=== PATIENT | male | born 1950 | race Caucasian/White ===

== ENCOUNTER 2016-11-10 12:36 | Emergency (ER) | payer BC, MEDICARE ==
[2016-11-10] MEDS ORDERED: CEPHALEXIN MONOHYDRATE 250 MG CAPSULE PO ONE (13:24)
[2016-11-10] MEDS ORDERED: CEPHALEXIN MONOHYDRATE 250 MG CAPSULE ONE (13:26)
--- OUTSIDE RECORDS SUMMARY | 2016-11-10 13:29 | XMS REPORT | Continuity of Care Document ---
:1950 Author Organization [employer] [place] [address] Care Team Providers Name Role Phone Unavailable Primary Care Provider Unavailable Source Comments This disclosure is being made pursuant to the com[employer] program and maynot contain all information available regarding this patient.[facility] Active Allergies and Adverse Reactions Not on File Current Medications Be aware that medications may not be up to date as of this document. Alwaysverify current medications with the patient. Not on file Active Problems Not on file Social History Tobacco Use Types Packs/Day Years Used Date Never Assessed Plan of Care Health Maintenance Due Date Last Done Comments Retired-Pertussis Vaccine Adult 1969 Retired-Tetanus Vaccine Adult 1969 Colonoscopy 2000 Well Adult Visit 2000 Zoster Vaccine 60+ 2010 Retired-INFLUENZA VACCINE 05/09/2015 Retired-Pneumococcal 23 Vaccine-65+ yo 2015 Results from Last 3 Months Not on file
--- OUTSIDE RECORDS SUMMARY | 2016-11-10 13:30 | XMS REPORT | Continuity of Care Document ---
:1950 Author Organization [facility] ([facility]) Address [address] [place] [address] Phone [phone] Care Team Providers Name Role Phone Abhishek Arias Primary Care Provider [phone] Source Comments This disclosure is being made pursuant to the Care Everywhere program, applicable federal and state laws, and may not contain all informaitonavailable regarding this patient.[facility] ([facility]) Active Allergies and Adverse Reactions Allergen Noted Date Severity Reactions Comments Sulfa (Sulfonamide Antibiotics) 01/22/2012 NO REACTION Current Medications Prescription Sig. Disp. Refills Start Date End Date Status amLODIPine 10 mg Take 10 mg by Active tablet mouth daily. acetaminophen Take 500 mg by Active (TYLENOL EXTRA mouth every 4 STRENGTH) 500 mg hours as tablet needed. spironolactone 25 Take 25 mg by Active mg tablet mouth daily. finasteride 5 mg Take 5 mg by Active tablet mouth every evening. SUPPLY syringe Inject by 1 Syringe 0 05/01/2015 Active (disposable) 10 mL injection once glimepiride 2 mg Take 2 mg by 6 07/27/2015 Active tablet mouth daily losartan-hydrochlor Take 1 tablet 8 12/14/2015 Active othiazide 100-12.5 by mouth daily. mg per tablet CIALIS 20 mg tablet as instructed. 3 03/09/2016 Active SUPPLY ONE TOUCH 06/14/2016 Active ULTRA test strips metoPROLol Take 1 tablet 90 tablet 3 07/09/2016 Active succinate 100 mg XL (100 mg total) tablet by mouth daily. tamsulosin 0.4 mg Take 0.4 mg by 11 07/31/2016 Active capsule mouth at bedtime. HYDROcodone-acetami Take 1-2 30 tablet 0 08/19/2016 Active nophen 5-325 mg per tablets by tablet mouth every 4 hours as needed for pain. temazepam 15 mg Take 1 capsule 20 capsule 0 10/14/2016 Active capsule (15 mg total) by mouth at bedtime as needed for Sleep or Anxiety (May repeat x 1, to take a maximum of Restoril 30 MG PO QHS). ciprofloxacin HCl Take 500 mg by Active 500 mg tablet mouth 2 times daily. sodium bicarbonate Take 2 tablets 25 tablet 2 06/05/2015 Discontinued 650 mg tablet each evening 7 before & morning of bladder treatments oxybutynin 5 mg Take 1 tablet 90 tablet 0 08/18/2015 Discontinued tablet (5 mg total) by 7 mouth every 6 hours as needed docusate 100 mg Take 1 capsule 30 capsule 2 08/19/2016 Discontinued capsule (100 mg total) 7 by mouth 2 times daily. sennosides 8.6 mg Take 1 tablet 30 tablet 2 08/19/2016 Discontinued tablet (8.6 mg total) 7 by mouth daily. aspirin 325 mg Take 650 mg by Discontinued tablet mouth as 7 needed. ciprofloxacin HCl Take 1 tablet 14 tablet 0 10/14/2016 Discontinued 500 mg tablet (500 mg total) 7 by mouth 2 times daily. Active Problems Problem Noted Date Malignant neoplasm 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 of bladder 09/26/2016 Urothelial cancer 09/26/2016 Abdominal carcinomatosis 09/26/2016 PONV (postoperative nausea and vomiting) 08/18/2015 Morbid obesity 07/18/2014 Overview: BMI=46.73 on 08/19/14; BMI 43.4 on 06/05/15 Obstructive sleep apnea 01/06/2013 Pulmonary hypertension 01/04/2013 LVH (left ventricular hypertrophy) 01/04/2013 Lower extremity edema 12/29/2012 Bladder cancer 11/19/2012 HTN (hypertension) 11/19/2012 Hyperlipidemia 11/19/2012 Paroxysmal atrial fibrillation CAD (coronary artery disease) Overview: Formatting of this note may be different from the original. 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 LAD mild irregs. Cx ostial 25% stenosis with mild irregs. RCA really hyperdominant with mild irregs. Normal renal arteriogram.) - 07/27/2004 ECHO/MUGA: Echo (Borderline LA enlargement. Moderate LVH. Normal LVSF.) - 07/27/2004 Echo (Normal EF, Severe LVH) - 10/12/2014 VASCULAR: Renal Duplex (No evidence of suspicious renal pathology. 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 08/17/2015 Most Recent Encounters Date Type Specialty Providers Description 10/21/2016 Hospital Encounter Hematology and Sarkis Smith Subj: Upcoming Appt Oncology MD Jagdish Reminder 10/14/2016 Hospital Encounter Hematology and Sarkis Smith Dx: Urinary tract Oncology MD Jagdish infection, site unspecified (Primary Dx) 09/26/2016 Orders/Notes Med Hematology and Sarkis Smith Dx: Malignant Oncology MD Jagdish neoplasm 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 of bladder (Primary Dx) 09/19/2016 Hospital Encounter Hematology and Sarkis Smith Dx: Malignant Oncology MD Jagdish neoplasm 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 of bladder (Primary Dx) 08/29/2016 Office Visit Med Hematology and Alvin Chilel, Dx: Malignant Oncology neoplasm of urinary bladder, unspecified site (Primary Dx) 08/29/2016 Office Visit Urology Oncology Pop Mata Dx: Urothelial MD Farhat cancer (Primary Dx) 08/29/2016 Telephone Med Hematology and 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 Hector 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 08/22/2016 Office Visit Med Hematology and Alvin Chilel, Subj: Appointment Oncology MD Rescheduled 08/22/2016 Office Visit Urology Oncology Pop Mata Subj: Appointment MD Farhat Scheduled 08/22/2016 Office Visit Med Hematology and Alvin Chilel, Subj: Appointment Oncology MD Scheduled 08/21/2016 Hospital Encounter Radiology Abu-Alvin, Dx: Malignant Jacqueline Singh MD neoplasm 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 of bladder 08/21/2016 Hospital Encounter Radiology Abu-Alvin, Dx: Malignant Jacqueline Singh MD neoplasm 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 of bladder 08/21/2016 Orders/Notes Urology Filippo Walters, Dx: Urothelial carcinoma (Primary Dx) 08/21/2016 Ancillary Orders Urology Ashley Rodriguez, Dx: 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 of 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 (Primary Dx) 08/19/2016 Hospital Encounter General Surgery Pop Mata Dx: Malignant MD Farhat neoplasm 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 of bladder (Primary Dx) 08/19/2016 Pharmacy Visit 08/19/2016 Surgery Urology Pop Mata BC W/ FULG &/OR MD Farhat RESECTION, LG BLADDER TUMOR 08/14/2016 Anesthesia Event Urology Darlyn Niño RN 08/13/2016 Telephone Urology Pop Mata Chief Comp: MD Farhat Appointment Info 08/12/2016 Office Visit Urology Pop Mata Dx: Malignant MD Farhat neoplasm 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 of bladder (Primary Dx) 08/12/2016 Hospital Encounter Radiology Junior Alexis, Dx: Pre-procedure MD lab exam (Primary Dx) 08/12/2016 Office Visit Pathology Junior Alexis Dx: Pre-procedure MD lab exam Lab Services, Irl Immunizations Name Dates Previously Given Next Due Influenza, unspecified 06/20/2014,06/08/2012 Social History Tobacco Use Types Packs/Day Years Used Date Never Smoker Smokeless Tobacco: Never Used Tobacco Cessation:Counseling Given: Yes Comments: Alcohol Use Drinks/Week oz/Week Comments No very rare Last Filed Vital Signs Vital Sign Reading Time Taken Blood Pressure 166/96 10/21/2016 11:07 AM 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[employer] Pulse 56 10/21/2016 11:07 AM 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 Temperature 36.8 C (98.2 F) 10/21/2016 11:07 AM 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 Respiratory Rate 20 10/21/2016 11:07 AM 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 Height 1.727 m (5' 8") 10/21/2016 11:07 AM 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 Weight 127.461 kg (281 lb) 10/21/2016 11:07 AM 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 Body Mass Index 42.74 10/21/2016 11:07 AM 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 Oxygen Saturation 96% 10/21/2016 11:07 AM 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 Plan of Care Date Type Specialty Providers Description 11/11/2016 Hospital Encounter Hematology and Sarkis Smith Subj: Upcoming Appt Oncology MD Jagdish Reminder [address] [place] [address] [phone] (Fax) 12/30/2016 Appointment Urology Pop Mata Subj: Appointment MD Farhat Scheduled [address] [place] [address] [phone] (Fax) 01/07/2017 Appointment Heart and Vascular Gayatri Leon MD Subj: Appointment [address] [place] [address] [phone] (Fax) Health Maintenance Due Date Last Done Comments HCV Screening 1950 Hepatitis B Vaccine (1 of 3 - Primary 1950 Series) Tdap Vaccine 1961 Lipid Disorder Screening 1968 Td Vaccine 1968 Colonoscopy 09/05/2000 Prostate Cancer Screening 2000 Zoster Vaccine 2010 Pneumococcal Vaccine (1 of 2 - PCV13) 2015 Influenza Vaccine: Seasonal (#1) 04/08/2016 06/20/2014, 06/08/2012 Procedures from Last 3 Months Procedure Name Priority Date/Time Associated Diagnosis Comments NO PROCEDURE Routine 09/01/2016 8:53 PM Urothelial cancer Results for this 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 procedure are in the results section. OR CASE Routine 08/20/2016 8:37 AM Malignant neoplasm Results for this 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 procedure are in of bladder the results section. BC W/ FULG &/OR 08/19/2016 11:10 AM Malignant neoplasm RESECTION, LG 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 BLADDER TUMOR of bladder Case Notes cysview, please make sure large resectoscope is available SCOPE OF BLADDER Routine 08/17/2016 7:54 PM Malignant neoplasm Results for this AND URETHRA, FOR 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 procedure are in DIAGNOSIS of bladder the results section. Results from Last 3 Months NO PROCEDURE (09/01/2016 8:53 PM) Narrative Pop Mata MD 09/01/20168:53 PM Urology Clinic Note Encounter Date: 08/29/2016 Primary Care Provider: Abhishek Lawler at [phone] [address] / [facility] [address] Subjective: Chief Complaint Patient presents with Patient Reported Reason For Visit Follow up in [address] Mata and try have same day appointment with medical oncology, Dr. Chilel / History of Present Illness: Junior Bennett is a 65 y.o. male from [place], [place] who comes in for follow-up of: 1. History of left nephroureterectomy History of Bladder cancer Now with carcinomatosis CONTEXT: Initial urothelial cancer was in 2012 with high-grade bladder cancer and a low-grade left distal ureter lesion. Underwent left distal partial ureterectomy with low-grade pathology and then received intravesical BCG/interferon locally. In 2013 was identified left upper tract recurrence and had left nephroureterectomy on 09/05/14, pathology showed noninvasive low-grade urothelial cancer and all 14 lymph nodes were negative. Also a history of bladder cancer. Follow up cystoscopy and CT scan after completing Maintenance A intravesical induction quad immunotherapy. He was on monthly maintenance therapy x 3 however developed a tumor around 1 cm in the left sided posterior wall of the bladder. Pathology revealed detached fragments of HG. After discussion with Dr. Mata he opted for quadruple immunotherapy rather than radical cystectomy, which he completed on 11/17/15. Restaging completed on 12/25/15 was normal showing erythematous changes and no malignancy The patient has H/O recurrent TaLG and HG urothelial cancer in the bladder s/p BCG failure, with TURBT most recently in 01/2015. He is s/p induction therapy with 6 weekly treatments of gemcitabine/docetaxel, last treatment on 03/27/15. He underwent operative restaging on 05/01/15 which revealed no obvious recurrent tumor. Necrotic-appearing scar at prior resection sites on posterior bladder wall and dome; No filling defects noted on right retrograde pyelogram; CAITY under anesthesia revealed moderately enlarged prostate without any nodularity or fixation; bladder biopsy negative; bladder wash no tumor cells; right ureteral washing non-diagnostic specimen due to paucicellularity. The patient received 3 rd monthly maintenance intravesical Gemcitabine/Docetaxel on 07/24/15. On 08/14/15 Panendoscopy of the bladder revealed scar tissue along the left lateral wall, below the narcotic tissue revealed a small ~1cm papillary lesion. There were also multiple suspicious flat erythematous lesions concerning for possible CIS along the posterior wall and dome. On 08/18/[address] Mata informed about pathology result as below. Dr Mata discussed that there was visible tumor and pathology suspicious for high grade urothelial cancer, muscle was present and in the specimen but not involved. Intravesical induction gemcitabine/docetaxel with negative restaging, and then was on maintenance therapy. Previously received intravesical BCG/interferon shortly after his nephroureterectomy in 2012. Reviewed the options of cystoprostatectomy vs. BCG based therapy vs. intravesical chemotherapeutic therapy. He does not have interest in cystectomy and then opted for quadruple immunotherapy. 01/26/15 CT abdomen/pelvis with contrast was no evidence of local tumor recurrence, postsurgical changes of the bladder with bladder wall thickening and subsequently underwent TURBT as above. cystoscopy with scar but no tumor visible, cytology returned as no tumor cells identified. CT with Possible peritoneal carcinomatosis on CT, showed concern for peritoneal carcinomatosis with several small enhancing nodules along with some new prominent mesenteric lymph nodes. Have been discussed with radiology and none of the lesions were amenable to core biopsy, it was felt that FNA could be done of the hernia lesion. - 03/29/16 PET scan Impression: 1. Multiple scattered bilateral pulmonary nodules, too small for PET CT characterization. 2. Clustered mesenteric nodules in the left paramedian pelvis, left external iliac and inferior to the left mid psoas which show low-grade FDG uptake, questionably reactive, less likely metastatic. 3. Previously noted scattered omental nodules are too small for PET CT characterization. 4. Focal moderate FDG uptake involving one of the mid ileal loops in the central abdomen without any underlying soft tissue lesion on the corresponding CT images, of uncertain etiology. - 04/03/16 ultrasound guided FNA biopsy of a 0.9 cm lesion in the fat of the ventral hernia. Incisional hernia lesion, ultrasound guided aspiration: Atypical cells present. See comment. Comment: The patient's history of noninvasive urothelial carcinoma is noted. We are unable to determine origin for these cells, but the main differential is urothelial versus mesothelial. Cell block is attempted by yields no cells for immunocytochemical characterization. Evaluated on 04/25/16 along with Medical Oncology.Decision was made to continue with surveillance and not pursue chemotherapy. Patient was informed that there was still suspicion of possible recurrence but did not have definitive evidence. Reported colonoscopy negative in February 2016 at [place] 08/12/16: Returned with surveillance cystoscopy along with CT scan: Significantly increase in peritoneal carcinomatosis. Development of retroperitoneal, mesenteric, iliac chain and right pericardial fat pad adenopathy. Increased enhancement and thickening of the left bladder dome with adjacent nodularity. Small volume malignant ascites. Cystoscopy showed new bladder nodularity, TURBT on 08/20/16 with High grade urothelial carcinoma invading muscularis propria. Attempted percutaneous US-guided biopsy to verify diagnosis. Radiology was unable to visualize the nodule next to the liver on ultrasound and nodes were not amenable to ultrasound-guided biopsy due to technical factors. Radiologist had reported potentially could get additional tissue by CT-guided biopsy. Follow-up for discussion with urologic oncology and medical oncology. ASSOCIATED SYMPTOMS: He reports some burning with urination since TURBT, no fevers or chills URO AUA Symptom Index 08/29/2016 Incomplete emptying: Less than 1 in 5 times (1) Frequency: Less than half the time (2) Intermittency: Less than 1 in 5 times (1) Urgency: Less than half the time (2) Weak stream: Less than half the time (2) Straining: Less than 1 in 5 times (1) Nocturia: 2 Times (2) Quality of life due to urinary symptoms: Mixed (3) International Symptom Score: Moderate (11) - Score Gutierrez: Mild (1-7), Moderate (8-19), Severe (20-35) Labs were reviewed: Creatinine trend: Lab Results Component Value Date ASSOCIATE RESEARCH SCIENTIST 1.4* 08/29/2016 ASSOCIATE RESEARCH SCIENTIST 1.3* 04/25/2016 ASSOCIATE RESEARCH SCIENTIST 1.3* 03/25/2016 ASSOCIATE RESEARCH SCIENTIST 1.4* 11/17/2015 eGFR trend: Lab Results Component Value Date GFR 51* 08/29/2016 GFR 55* 08/12/2016 GFR 55* 04/25/2016 GFR 55* 03/25/2016 Family History: No reported family history of urologic cancer. Social History: reports that he has never smoked. He has never used smokeless tobacco. Review of systems: 10 system ROS was obtained, reviewed as below: All systems were reviewed and are negative except for: Ears: Drainage Cardiovascular: Swelling of the feet or legs GI: Stomach pain Urogenital:Up at night to urinate, Erectile concerns Musculoskeletal: Joint pain, Muscle weakness Integumentary: Problems Healing Neurological: Weakness of an arm/leg Mental Health: Feeling down or depressed Cancer: Yes Remainder of 10 point ROS was negative Past Medical History: Active Problem List with Overview Notes Diagnosis Date Noted Paroxysmal atrial fibrillation CAD (coronary artery disease) 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 LAD mild irregs. Cx ostial 25% stenosis with mild irregs. RCA really hyperdominant with mild irregs. Normal renal arteriogram.) - 07/27/2004 ECHO/MUGA: Echo (Borderline LA enlargement. Moderate LVH. Normal LVSF.) - 07/27/2004 Echo (Normal EF, Severe LVH) - 10/12/2014 VASCULAR: Renal Duplex (No evidence of suspicious renal pathology. Mild hapatomegaly with diffuse fatty infiltration of the liver.) - 09/14/2004 PONV (postoperative nausea and vomiting) 08/18/2015 Morbid obesity 07/18/2014 BMI=46.73 on 08/19/14; BMI 43.4 on 06/05/15 Obstructive sleep apnea 01/06/2013 Pulmonary hypertension 01/04/2013 LVH (left ventricular hypertrophy) 01/04/2013 Lower extremity edema 12/29/2012 Bladder cancer 11/19/2012 HTN (hypertension) 11/19/2012 Hyperlipidemia 11/19/2012 Past Surgical History Procedure Laterality Date Spinal fusion Pilonidal cyst excision Scope bladder, removal of tumors, medium12/07/2012 Procedure: BC W/ FULG &/OR MD AKUA BLADDER TUMOR; Surgeon: Pop Mata MD;Location: UROLOGY OR;Service: Urology Njx cstograpy/voiding urethrocstograpy12/07/2012 Procedure: INJECTION FOR CYSTOGRAPHY;Surgeon: Pop Mata MD;Location: UROLOGY OR;Service: Urology Unlis px ur sys Left 01/05/2013 Procedure: URETERECTOMY;Surgeon: Pop Mata MD; Location: MAIN OR;Service: Urology Urtroneocstost w/vesico-psoas hitch/bldr flap Left 01/05/2013 Procedure: URETERECTOMY;Surgeon: Pop Mata MD; Location: MAIN OR;Service: Urology Lmtd lmphadec staging spx pel&para-aortic Left 01/05/2013 Procedure: URETERECTOMY;Surgeon: Pop Mata MD; Location: MAIN OR;Service: Urology Ykqcyjmzqzmp19/13/2014 Csto w/urtroscopy&/pyeloscopy dx Left 07/18/2014 Procedure: CYSTOURETHROSCOPY WITH URETEROSCOPY &/OR PYELOSCOPY; Surgeon: Pop Mata MD;Location: UROLOGY OR;Service: Urology Turbt01/10/2015 Scope bladder, removal of tumors, medium N/A 01/09/2015 Procedure: BC W/ FULG &/OR MD AKUA BLADDER TUMOR; Surgeon: Pop Mata MD;Location: UROLOGY OR;Service: Urology Scope bladder and urethra, with biopsy N/A 05/01/2015 Procedure: BC W/ BIOPSY;Surgeon: Pop Mata MD; Location: UROLOGY OR;Service: Urology Scope bladder, insert tube for injection05/01/2015 Procedure: ;Surgeon: Pop Mata MD;Location: UROLOGY OR;Service: Urology Scope bladder, removal of tumors, small N/A 08/18/2015 Procedure: BC W/ FULG &/OR RESECTION, SM BLADDER TUMOR; Surgeon: Pop Mata MD;Location: UROLOGY OR;Service: Urology Scope bladder, removal of tumors, small N/A 12/25/2015 Procedure: BC W/ FULG &/OR RESECTION, SM BLADDER TUMOR; Surgeon: Pop Mata MD;Location: UROLOGY OR;Service: Urology Spine surgery Cataract removal Sinus surgery Joint replacement Hernia repair Abdomen surgery Back surgery Scope bladder, removal of tumors, large N/A 08/19/2016 Procedure: BC W/ FULG &/OR RESECTION, LG BLADDER TUMOR; Surgeon: Pop Mata MD;Location: UROLOGY OR;Service: Urology Medication List with Changes/Refills - Short Form Current Medications ACETAMINOPHEN (TYLENOL EXTRA STRENGTH) 500 MG TABLET AMLODIPINE 10 MG TABLET CIALIS 20 MG TABLET DOCUSATE 100 MG CAPSULE FINASTERIDE 5 MG TABLET GLIMEPIRIDE 2 MG TABLET HYDROCODONE-ACETAMINOPHEN 5-325 MG PER TABLET LOSARTAN-HYDROCHLOROTHIAZIDE 100-12.5 MG PER TABLET METOPROLOL SUCCINATE 100 MG XL TABLET OXYBUTYNIN 5 MG TABLET SENNOSIDES 8.6 MG TABLET SODIUM BICARBONATE 650 MG TABLET SPIRONOLACTONE 25 MG TABLET SUPPLY ONE TOUCH ULTRA TEST STRIPS SUPPLY SYRINGE (DISPOSABLE) 10 ML TAMSULOSIN 0.4 MG CAPSULE Allergies Allergen Reactions Sulfa (Sulfonamide Antibiotics) NO REACTION Social History Social History Marital Status: Spouse Name: N/A Number of Children: N/A Years of Education: N/A 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 Social History Main Topics Smoking status: Never Smoker Smokeless tobacco: Never Used Alcohol Use: No Comment: very rare Drug Use: No Sexual Activity: Partners: Female Other Topics Concern Not on file Social History Narrative Family History Problem Relation Age of Onset Heart Attack Father Diabetes Mother Heart Failure Mother Heart Disease Mother Diabetes Father ginger bennett Hypertension Mother Hypertension Father Objective: Physical Exam: BP 159/85 mmHg | Pulse 54 | Temp(Src) 37.4 C (99.3 F) (Tympanic) | Ht 1.74 m (5' 8.5") | Wt 130.5 kg (287 lb 11.2 oz) | BMI 43.10 kg/m2 | SpO2 95% Vital signs as documented. General: Alert and in no apparent distress. Psych: normal affect. Eyes: eyes anicteric. Oral mucosa moist. Cardiac: Normal rate. Respiratory: Breathing not labored. Musculoskeletal and neurologic were grossly normal. Skin: no lesions noted. Abdomen/GI: Soft, non-tender, has ventral hernia Data Reviewed: Reviewed and summarized history from prior old medical records Reviewed pathology testing. Discussed with Dr. Chilel. No procedure performed Assessment and Plan: Junior Bennett is a 65 y.o. 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 Possible peritoneal carcinomatosis on prior CT, now with definitive radiographic evidence of carcinomatosis, lymphadenopathy, small volume acites and muscle-invasive urothelial carcinoma. - Extensive discussion with the patient, , and daughter that the findings on CT scan showed significant increase in peritoneal carcinomatosis along with adenopathy.Discussed that TURBT showed urothelial carcinoma. Findings of metastatic urothelial carcinoma. Discussed with Dr. Chilel and in this setting CT-guided biopsy not needed to confirm diagnosis. - Would not recommend cystectomy in the setting of metastatic disease. Medical oncology evaluating for systemic therapy options. - Reasonable to recheck bladder via cystoscopy in 3 to 6 months, with main goal of avoiding tumor growing over the solitary right ureteral orifice. Dysuria after TURBT - discussed this is most likely discomfort from resection and fulguration of the bladder, sent urine culture to rule out UTI - urine culture returned as no growth so will not initiate any antibiotic therapy Follow-up: Care per medical oncology as above and Return to urology in 3 to 6 months with office cystoscopy Pop Mata MD Cancer Researcher of Urology [facility] URINE CULTURE, ROUTINE AEROBIC (08/29/2016 3:33 PM)Only the most recent of2 resultswithin the time period is included. Component Value Range Quantitative Culture No growth at 09/999 dilution Specimen Culture - Urine, Midstream clean catch RESEARCH BLOOD DRAW (08/29/2016 3:00 PM) Component Value Range Research Blood Draw Done Specimen Blood DIFFERENTIAL (08/29/2016 1:50 PM) Component Value Range % Neutrophils-Auto Diff 78.8 % Neutrophils-Auto Diff 8910(H) 8893-9807 /MM3 % Lymphocytes-Auto Diff 7.6 % Lymphocytes-Auto Diff 860(L) 875-3300 /MM3 % Monocytes-Auto Diff 9.1 % Monocytes-Auto Diff 1030(H) 130-860 /MM3 % Eosinophils-Auto Diff 3.6 % Eosinophils-Auto Diff 410(H) 40-390 /MM3 % Basophils 0.5 % Basophils-Auto Diff 60 10-136 /MM3 % Immature Granulocytes-Auto Diff 0.4 % Immature Granulocytes-Auto Diff 50 /MM3 Specimen Blood CBC (COMPLETE BLOOD COUNT) (08/29/2016 1:50 PM) Component Value Range WBC Count 11.3(H) 3.7-10.5 K/MM3 RBC Count 5.81 4.50-6.20 M/MM3 Hemoglobin 17.2 13.2-17.7 g/dL Hematocrit 51 40-52 % MCV (Mean Corpuscular Volume) 87 82-99 FL MCH (Mean Corpuscular Hemoglobin) 30 25-35 PG MCHC (Mean Corpuscular Hemoglobin Concentration) 34 32-36 % Platelet Count 236 150-400 K/MM3 MPV (Mean Platelet Volume) 10.9 9.4-12.3 FL RBC Dist Width-STD 43.0 35.1-43.9 FL RBC Distrib Width 13.5 9.0-14.5 % Nucleated RBC 0 /100 WBC Specimen Blood CBC WITH DIFFERENTIAL (08/29/2016 1:50 PM) Specimen Blood Narrative The following orders were created for panel order CBC WITH DIFFERENTIAL. Procedure Abnormality Status --------- ------ CBC (COMPLETE BLOOD COUNT)[[id number]] AbnormalFinal result DIFFERENTIAL[[id number]] AbnormalFinal result Please view results for these tests on the individual orders. CHLORIDE (08/29/2016 1:50 PM) Component Value Range Chloride 102 95-107 mEq/L Specimen Blood BLOOD UREA NITROGEN (08/29/2016 1:50 PM) Component Value Range BUN 23(H) 10-20 mg/dL Specimen Blood ASPARTATE AMINOTRANSFERASE (08/29/2016 1:50 PM) Component Value Range AST 19Comment: 0-40 U/L Adult reference ranges updated on 08/03/13 at 830am Specimen Blood ALANINE AMINOTRANSFERASE (08/29/2016 1:50 PM) Component Value Range ALT 20Comment: 0-41 U/L The upper limit of normal for alanine aminotransferase (ALT) reference ranges for adults is controversial with some authorities recommending limit as low as 30 U/L for males and 19 U/L for females. Th ere is increased incidence of subclinical liver disease (e.g., early steatohepatitis) in patients with ALT values in the range of 31-41 U/L for males and 20-33 U/L for females. ALT values should alway s be interpreted in conjunction with clinical history, physical examination findings, and, if applicable, data from other diagnostic tests. Specimen Blood SODIUM (08/29/2016 1:50 PM) Component Value Range Sodium 141 135-145 mEq/L Specimen Blood TOTAL PROTEIN (08/29/2016 1:50 PM) Component Value Range Total Protein 6.8 6.0-8.0 g/dL Specimen Blood POTASSIUM (08/29/2016 1:50 PM) Component Value Range Potassium 4.4 3.5-5.0 mEq/L Specimen Blood ALKALINE PHOSPHATASE (08/29/2016 1:50 PM) Component Value Range ALP 71 40-129 U/L Specimen Blood CREATININE (08/29/2016 1:50 PM) Component Value Range Creatinine 1.4(H)Comment: 0.6-1.2 mg/dL Creatinine switched to enzymatic method on 01/15/2011.GFR equation switched to IDMS-traceable MDRD equation on 01/15/2011. Calculated GFR values are not valid in clinical settings where serum creatinine is changing. Calculated GFR 51(L) >60 mL/min/1.73 m2 Specimen Blood CO2 (08/29/2016 1:50 PM) Component Value Range CO2 25 22-29 mEq/L Anion Gap 14 8-18 mEq/L Specimen Blood CALCIUM (08/29/2016 1:50 PM) Component Value Range Calcium 9.4 8.5-10.5 mg/dL Specimen Blood BILIRUBIN, TOTAL (08/29/2016 1:50 PM) Component Value Range Bilirubin Total 0.6 <=1.2 mg/dL Specimen Blood ALBUMIN (08/29/2016 1:50 PM) Component Value Range Albumin 3.7 3.4-4.8 g/dL Specimen Blood US EXTREMITY NON VASCULAR (LIMITED) (08/21/2016 3:49 PM) Impressions Impression: 1. Visualized left groin and pelvic lymph nodes are enlarged but have thin cortices and preserved fatty leona morphologically consistent with benign nodes and not amenable to core-needle aspiration. 2. Known carcinomatosis around the liver was not discretely visualized sonographically. Results of the procedure discussed with: Person contacted: KYLEE Boggs Date: 08/21/2016 Time called: 15:30 Phone or pager #: [phone] --- Final --- Narrative [facility] Department of Radiology Ultrasound Division [address] [place] [address] ULTRASOUND REPORT NAME:JUNIOR BENNETT Date of Service: 08/21/2016 MRN NO.: [id number] Review Date: 08/21/2016 Patient's : 1950 Resident/Tech: [id number] Law Belcher Patient's Age: 65 years Referring MD:ASHLEY RODRIGUEZ Indication: Omental, left iliac, or carcinomatosis of liver. History of bladder cancer. Technique: Grayscale US Extremity Limited. Comparison: CT. 08/12/2016. Findings: Known carcinomatosis of the liver was not visualized sonographically. Ultrasound of: + + + -+ :Structure/Organ:Left Groin:Left Pelvis : + + + -+ :Size :4.1x1.4x3.4 : : + + + -+ :Shape:Oval and thin cortex and fatty:Oval and thin cortex and fatty : : :hilum.:hilum. : + + + -+ :Echogenicity :Hyperechoic.:Hyperechoic. : + + + -+ Procedure Note Eulalio, Incoming Imaging Results - FriAug 21, 2016 4:34 PM 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ET END [facility] Department of Radiology Ultrasound Division [address] [place] [address] ULTRASOUND REPORT NAME: JUNIOR BENNETT Date of Service: 08/21/2016 MRN NO.: [id number] Review Date: 08/21/2016 Patient's : 1950 Resident/Tech: [id number] Law Belcher Patient's Age: 65 years Referring MD: ASHLEY RODRIGUEZ Indication: Omental, left iliac, or carcinomatosis of liver. History of bladder cancer. Technique: Grayscale US Extremity Limited. Comparison: CT. 08/12/2016. Findings: Known carcinomatosis of the liver was not visualized sonographically. Ultrasound of: + + + -+ :Structure/Organ:Left Groin :Left Pelvis : + + + -+ :Size :4.1x1.4x3.4 : : + + + -+ :Shape :Oval and thin cortex and fatty:Oval and thin cortex andfatty : : :hilum. :hilum. : + + + -+ :Echogenicity :Hyperechoic. :Hyperechoic. : + + + -+ IMPRESSION Impression: 1. Visualized left groin and pelvic lymph nodes are enlarged but have thin cortices and preserved fatty leona morphologically consistent with benignnodes and not amenable to core-needle aspiration. 2. Known carcinomatosis around the liver was not discretely visualized sonographically. Results of the procedure discussed with: Person contacted: KYLEE Boggs Date: 08/21/2016 Time called: 15:30 Phone or pager #: [phone] --- Final --- OR CASE (08/20/2016 8:37 AM) Pop Mae MD 08/20/20168:37 AM Post-Op Procedure Note Operation/Procedure: Transurethral resection of bladder tumor large (>5cm) General Information: Date: 08/19/16 Time: 1110 Location: UROLOGY OR OR Room: UROLOGY OR 1 Service: Urology Log ID: [id number] Surgeon: Surgeon(s) and Role: * Pop Mata MD - Primary * Yefri Aleman MD - Resident - Assisting Staff Information: Circulating Nurse: Mary Garcia RN; Bibi Bejarano RN Wildlife Policy Professional- Scrub: Calvin Lundberg Anesthesia: General Pre-operative Diagnosis Bladder tumor Post-operative Diagnosis Same Findings: Nodularity and rugal folds on the left floor of the bladder, enlarged prostate and long urethra necessitating extended length resectoscope Blood Loss: Minimal Tourniquet Time: * No tourniquets in log * Implants: * No implants in log * Specimens: ID Type Source Tests Collected by Time Destination 1 : bladder tumor Tissue formalin Helen Guerrero Kenneth G, MD 08/19/2016 1125 Pathology Complications: None, patient tolerated the procedure well Condition: Stable Operative Report Completion Indications: Junior Bennett is a 65 y.o. 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 Possible peritoneal carcinomatosis on prior CT, now with definitive radiographic evidence of increased carcinomatosis, lymphadenopathy, small volume acites. Now with bladder nodularity on cystoscopy. Procedure Details: After informed consent was obtained the patient was brought to the operating room and then time out was taken to verify the correct patient and procedure.The patient was given preoperative antibiotics.General anesthesia was induced and the patient was placed in dorsal lithotomy position.External genitalia were prepped and draped in standard sterile fashion. The Turis resectoscope was navigated into the urethra, however the patient had obesity and large prostate, thus the standard length resectoscope was unable to pass into the bladder. The extended length Olympus monopolar resectoscope was then used to navigate the urethra into the bladder. The right ureteral orifice was identifed and found to be uninvolved in the tumor. The left aspect of the bladder was noted to form a "V-shape" with a direction aimed in the posterolateral direction. This is consistent with the patient's prior left distal ureterectomy and psoas hitch. The base and left bladder had nodularity about 5-6 cm in size. The resection loop was used to systematically resect this concerning lesion which was greater than 5 cm in size. There were no perforations noted at the end of the resection. The resected lesion was removed with the [employer] evacuator. The roller ball was used to fulgurate any bleeding areas, the margin of the resection, and the floor of the resection bed. Good hemostasis was achieved, and maintained with drainage of the bladder. The resectoscope was then removed. A 22 Fr burk catheter was placed with 12mL instilled into the balloon and connected to straight drainage.The patient was awoken from anesthesia and brought to the Post Anesthesia Care Unit in stable condition.There were no immediate complications. Plan - Burk catheter for 2 days - 3 days of prophylactic antibiotic - Lortab and Ditropan for pain and or discomfort - Scheduled for biopsy of abdominal lesion. RTC next week for pathology discussion with urology and medical oncology. Yefri Aleman MD Department of Urology PGY2 Attending Attestation: I was present for entire procedure. I edited the note as above. Pop Mata MD Cancer Researcher of Urology [facility] BLOOD GLUCOSE, BEDSIDE (08/19/2016 12:24 PM) Component Value Range Glucose, Accu-Chek 118(H) 65-99 mg/dL Specimen Blood, capillary SURGICAL PATHOLOGY EXAM (08/19/2016 11:29 AM) Component Value Range Case Report Surgical Pathology Case: [id number] Authorizing Provider:Yefri Aleman MD Collected: 08/19/2016 11:29 AM Ordering Location: [facility] Received:08/19/2016 01:57 PM Pathologist: Lucille Hall MD Specimen:Bladder, Urinary Diagnosis Urinary bladder, transurethral resection: High grade urothelial carcinoma invading muscularis propria. Lymphovascular space invasion identified. I have personally reviewed this case and edited the report as necessary. Clinical Information Bladder tumor resection. Gross Description Received in formalin in a container labeled with Junior Bennett, hospital number, and "bladder tumor" is a 2.0 x 2.0 x 1.0 cm aggregate of read-pink soft tissue fragments. Submitted entirely in A1-A2. AJF/obdulio Microscopic Description Microscopic examination performed and supports diagnosis. Specimen Tissue - Bladder, Urinary CYSTOSCOPY (08/17/2016 7:54 PM) Pop Mae MD 08/17/20167:54 PM Urology Clinic Note Encounter Date: 08/12/2016 Primary Care Provider: Abhishek Lawler at [phone] [address] / [facility] [address] Subjective: Chief Complaint Patient presents with Patient Reported Reason For Visit RTC, 3m fu, cysto and CT History of Present Illness: Junior Bennett is a 65 y.o. male from [place], [place] who comes in for follow-up of: 1. History of left nephroureterectomy History of Bladder cancer CONTEXT: Initial urothelial cancer was in 2012 with high-grade bladder cancer and a low-grade left distal ureter lesion. Underwent left distal partial ureterectomy with low-grade pathology and then received intravesical BCG/interferon locally. In 2013 was identified left upper tract recurrence and had left nephroureterectomy on 09/05/14, pathology showed noninvasive low-grade urothelial cancer and all 14 lymph nodes were negative. Also a history of bladder cancer. Follow up cystoscopy and CT scan after completing Maintenance A intravesical induction quad immunotherapy. He was on monthly maintenance therapy x 3 however developed a tumor around 1 cm in the left sided posterior wall of the bladder. Pathology revealed detached fragments of HG. After discussion with Dr. Mata he opted for quadruple immunotherapy rather than radical cystectomy, which he completed on 11/17/15. Restaging completed on 12/25/15 was normal showing erythematous changes and no malignancy The patient has H/O recurrent TaLG and HG urothelial cancer in the bladder s/p BCG failure, with TURBT most recently in 01/2015. He is s/p induction therapy with 6 weekly treatments of gemcitabine/docetaxel, last treatment on 03/27/15. He underwent operative restaging on 05/01/15 which revealed no obvious recurrent tumor. Necrotic-appearing scar at prior resection sites on posterior bladder wall and dome; No filling defects noted on right retrograde pyelogram; CAITY under anesthesia revealed moderately enlarged prostate without any nodularity or fixation; bladder biopsy negative; bladder wash no tumor cells; right ureteral washing non-diagnostic specimen due to paucicellularity. The patient received 3 rd monthly maintenance intravesical Gemcitabine/Docetaxel on 07/24/15. On 08/14/15 Panendoscopy of the bladder revealed scar tissue along the left lateral wall, below the narcotic tissue revealed a small ~1cm papillary lesion. There were also multiple suspicious flat erythematous lesions concerning for possible CIS along the posterior wall and dome. On 08/18/[address] Mata informed about pathology result as below. Dr Mata discussed that there was visible tumor and pathology suspicious for high grade urothelial cancer, muscle was present and in the specimen but not involved. Intravesical induction gemcitabine/docetaxel with negative restaging, and then was on maintenance therapy. Previously received intravesical BCG/interferon shortly after his nephroureterectomy in 2012. Reviewed the options of cystoprostatectomy vs. BCG based therapy vs. intravesical chemotherapeutic therapy. He does not have interest in cystectomy and then opted for quadruple immunotherapy. 01/26/15 CT abdomen/pelvis with contrast was no evidence of local tumor recurrence, postsurgical changes of the bladder with bladder wall thickening and subsequently underwent TURBT as above. cystoscopy with scar but no tumor visible, cytology returned as no tumor cells identified. CT with Possible peritoneal carcinomatosis on CT, showed concern for peritoneal carcinomatosis with several small enhancing nodules along with some new prominent mesenteric lymph nodes. Have been discussed with radiology and none of the lesions were amenable to core biopsy, it was felt that FNA could be done of the hernia lesion. - 03/29/16 PET scan Impression: 1. Multiple scattered bilateral pulmonary nodules, too small for PET CT characterization. 2. Clustered mesenteric nodules in the left paramedian pelvis, left external iliac and inferior to the left mid psoas which show low-grade FDG uptake, questionably reactive, less likely metastatic. 3. Previously noted scattered omental nodules are too small for PET CT characterization. 4. Focal moderate FDG uptake involving one of the mid ileal loops in the central abdomen without any underlying soft tissue lesion on the corresponding CT images, of uncertain etiology. - 04/03/16 ultrasound guided FNA biopsy of a 0.9 cm lesion in the fat of the ventral hernia. Incisional hernia lesion, ultrasound guided aspiration: Atypical cells present. See comment. Comment: The patient's history of noninvasive urothelial carcinoma is noted. We are unable to determine origin for these cells, but the main differential is urothelial versus mesothelial. Cell block is attempted by yields no cells for immunocytochemical characterization. Evaluated on 04/25/16 along with Medical Oncology.Decision was made to continue with surveillance and not pursue chemotherapy. Patient was informed that there was still suspicion of possible recurrence but did not have definitive evidence. Reported colonoscopy negative in February 2016 at [place] 08/12/16: Returns today with surveillance cystoscopy along with CT scan for continued surveillance. ASSOCIATED SYMPTOMS: No gross hematuria, denies weight loss URO AUA Symptom Index 08/12/2016 Incomplete emptying: Less than 1 in 5 times (1) Frequency: Less than 1 in 5 times (1) Intermittency: Not at all (0) Urgency: Less than 1 in 5 times (1) Weak stream: Less than half the time (2) Straining: Not at all (0) Nocturia: 1 Time (1) Quality of life due to urinary symptoms: Mostly satisfied (2) International Symptom Score: Mild (6) - Score Gutierrez: Mild (1-7), Moderate (8-19), Severe (20-35) With respect to renal function, the patient has a most recent creatinine and eGFR of Lab Results Component Value Date ASSOCIATE RESEARCH SCIENTIST 1.3* 04/25/2016 GFR 55* 08/12/2016 Family History: No reported family history of urologic cancer. Social History: reports that he has never smoked. He has never used smokeless tobacco. Review of systems: 10 system ROS was obtained, reviewed as below: All systems were reviewed and are negative except for: Ears: Drainage Cardiovascular: Swelling of the feet or legs GI: Stomach pain Urogenital:Up at night to urinate, Erectile concerns Musculoskeletal: Joint pain, Muscle weakness Integumentary: Problems Healing Neurological: Weakness of an arm/leg Mental Health: Feeling down or depressed Cancer: Yes Remainder of 10 point ROS was negative Past Medical History: Active Problem List with Overview Notes Diagnosis Date Noted Paroxysmal atrial fibrillation CAD (coronary artery disease) 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 LAD mild irregs. Cx ostial 25% stenosis with mild irregs. RCA really hyperdominant with mild irregs. Normal renal arteriogram.) - 07/27/2004 ECHO/MUGA: Echo (Borderline LA enlargement. Moderate LVH. Normal LVSF.) - 07/27/2004 Echo (Normal EF, Severe LVH) - 10/12/2014 VASCULAR: Renal Duplex (No evidence of suspicious renal pathology. Mild hapatomegaly with diffuse fatty infiltration of the liver.) - 09/14/2004 PONV (postoperative nausea and vomiting) 08/18/2015 Morbid obesity 07/18/2014 BMI=46.73 on 08/19/14; BMI 43.4 on 06/05/15 Obstructive sleep apnea 01/06/2013 Pulmonary hypertension 01/04/2013 LVH (left ventricular hypertrophy) 01/04/2013 Lower extremity edema 12/29/2012 Bladder cancer 11/19/2012 HTN (hypertension) 11/19/2012 Hyperlipidemia 11/19/2012 Past Surgical History Procedure Laterality Date Spinal fusion Pilonidal cyst excision Scope bladder, removal of tumors, medium12/07/2012 Procedure: BC W/ FULG &/OR RESECTION, MD BLADDER TUMOR; Surgeon: Pop Mata MD;Location: UROLOGY OR;Service: Urology Njx cstograpy/voiding urethrocstograpy12/07/2012 Procedure: INJECTION FOR CYSTOGRAPHY;Surgeon: Pop Mata MD;Location: UROLOGY OR;Service: Urology Unlis px ur sys Left 01/05/2013 Procedure: URETERECTOMY;Surgeon: Pop Mata MD; Location: MAIN OR;Service: Urology Urtroneocstost w/vesico-psoas hitch/bldr flap Left 01/05/2013 Procedure: URETERECTOMY;Surgeon: Pop Mata MD; Location: MAIN OR;Service: Urology Lmtd lmphadec staging spx pel&para-aortic Left 01/05/2013 Procedure: URETERECTOMY;Surgeon: Pop Mata MD; Location: MAIN OR;Service: Urology Dvpdugdljqkb07/13/2014 Csto w/urtroscopy&/pyeloscopy dx Left 07/18/2014 Procedure: CYSTOURETHROSCOPY WITH URETEROSCOPY &/OR PYELOSCOPY; Surgeon: Pop Mata MD;Location: UROLOGY OR;Service: Urology Turbt01/10/2015 Scope bladder, removal of tumors, medium N/A 01/09/2015 Procedure: BC W/ FULG &/OR RESECTION, MD BLADDER TUMOR; Surgeon: Pop Mata MD;Location: UROLOGY OR;Service: Urology Scope bladder and urethra, with biopsy N/A 05/01/2015 Procedure: BC W/ BIOPSY;Surgeon: Pop Mata MD; Location: UROLOGY OR;Service: Urology Scope bladder, insert tube for injection05/01/2015 Procedure: ;Surgeon: Pop Mata MD;Location: UROLOGY OR;Service: Urology Scope bladder, removal of tumors, small N/A 08/18/2015 Procedure: BC W/ FULG &/OR RESECTION, SM BLADDER TUMOR; Surgeon: Pop Mata MD;Location: UROLOGY OR;Service: Urology Scope bladder, removal of tumors, small N/A 12/25/2015 Procedure: BC W/ FULG &/OR RESECTION, SM BLADDER TUMOR; Surgeon: Pop Mata MD;Location: UROLOGY OR;Service: Urology Spine surgery Cataract removal Sinus surgery Joint replacement Hernia repair Abdomen surgery Back surgery Medication List with Changes/Refills - Short Form Current Medications ACETAMINOPHEN (TYLENOL EXTRA STRENGTH) 500 MG TABLET AMLODIPINE 10 MG TABLET CIALIS 20 MG TABLET FINASTERIDE 5 MG TABLET GLIMEPIRIDE 2 MG TABLET LOSARTAN-HYDROCHLOROTHIAZIDE 100-12.5 MG PER TABLET METOPROLOL SUCCINATE 100 MG XL TABLET OXYBUTYNIN 5 MG TABLET SODIUM BICARBONATE 650 MG TABLET SPIRONOLACTONE 25 MG TABLET SUPPLY ONE TOUCH ULTRA TEST STRIPS SUPPLY SYRINGE (DISPOSABLE) 10 ML TAMSULOSIN 0.4 MG CAPSULE Allergies Allergen Reactions Sulfa (Sulfonamide Antibiotics) NO REACTION Social History Social History Marital Status: Spouse Name: N/A Number of Children: N/A Years of Education: N/A 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 Social History Main Topics Smoking status: Never Smoker Smokeless tobacco: Never Used Alcohol Use: No Comment: very rare Drug Use: No Sexual Activity: Partners: Female Other Topics Concern Not on file Social History Narrative Family History Problem Relation Age of Onset Heart Attack Father Diabetes Mother Heart Failure Mother Heart Disease Mother Diabetes Father ginger sabrina Hypertension Mother Hypertension Father Objective: Physical Exam: BP 188/96 mmHg | Pulse 51 | Temp(Src) 37.1 C (98.8 F) (Tympanic) | Ht 1.727 m (5' 8") | Wt 132 kg (291 lb 0.1 oz) | BMI 44.26 kg/m2 Vital signs as documented. General: Alert and in no apparent distress. Psych: normal affect. Eyes: eyes anicteric. Oral mucosa moist. Cardiac: Normal rate. Respiratory: Breathing not labored. Musculoskeletal and neurologic were grossly normal. Skin: no lesions noted. Abdomen/GI: Soft, non-tender, has ventral hernia Data Reviewed: Reviewed and summarized history from prior old medical records Reviewed clinical laboratory tests. Reviewed radiology testing. Dr. Mata independently visualized radiology imaging of CT and agrees with the interpretation of the radiologist. Recent Results (from the past 168 hour(s)) -CT CHEST ABDOMEN PELVIS W CONTRAST ([id number], [id number]) Narrative Procedure: CT CHEST ABDOMEN PELVIS W CONTRAST ([id number], [id number]) Clinical Indication: History of bladder cancer and nodules on prior CT. PET negative and biopsy negative. Evaluate for interval change. Technique: CT exam of the chest, abdomen, and pelvis is performed following the uneventful administration of 100 cc Isovue-370 IV contrast.7 minute delayed images were obtained. Comparison: PET imaging 03/29/2016, CT abdomen and pelvis 03/25/2016 Findings: Neck base and axilla: 7 mm right isthmic hypodense thyroid nodule. No adenopathy. Mediastinum and leona: 8 mm left upper paratracheal lymph node, stable. Calcified mediastinal lymph nodes. Heart and thoracic aorta: Normal. Enlarged right pericardial fat pad lymph nodes with the largest measuring 9 mm in short axis. Minimal soft tissue seen in the prior examination this region (2-73). Airway: Patent. Lungs and pleura: A 7 x 3 mm spiculated nodule in the anterior aspect of the right upper lobe does not appear changed from recent PET exam. No discrete increased uptake is seen on the prior PET. Additional scattered calcified and noncalcified pulmonary nodules are seen. Noncalcified pulmonary nodule in the left lower lobe measures 3 mm (4-60). Esophagus: Normal. Chest wall soft tissues: Normal Liver: Diffuse decreased density of the liver. No focal hepatic lesions. Bile ducts: Not dilated. Gallbladder: Normal. Pancreas: Normal Spleen: Mild enlargement spanning 13.8 cm. Adrenal glands: Two right adrenal myolipomas remain stable. Left gland is absent. Kidneys: Stable right renal cysts. Left kidney is surgically absent. Ureters: Normal Bladder: Increased abnormal enhancement wall thickening involving the left bladder dome. Aorta: Scattered calcific plaquing. Retroperitoneum: Development of aortocaval and periaortic adenopathy, mainly in the infrarenal area. Largest lymph node measures 1.8 cm in short axis (2-132). Peritoneum: Increase in diffuse carcinomatosis with studding along the left hepatic lobe anteriorly. Multiple nodules in the ventral abdomen including within the left ventral abdominal hernia. Associated malignant ascites in the pericolic gutters. Mesentery: Increased necrotic appearing nodules predominantly in the SIMRAN distribution measuring up to 1.6 cm in short axis. Stomach: Small hiatal hernia. Small bowel: Not distended. Colon: Not distended. Appendix: Normal. Extraperitoneal pelvis: Multiple abnormal bilateral iliac chain lymph nodes have increased in size, most pronounced on the left. Multiple enlarged presacral lymph nodes are also seen with the largest measuring 2.0 cm in short axis (2-171). Prostate: Normal Abdominal wall: Ventral abdominal diastases with left sided hernia containing fat and metastatic nodules. Fat-containing bilateral inguinal hernias. Bones: Stable sclerotic lesion in the left ilium, likely benign. Old posterior left 11th rib fracture. Multilevel degenerative disc disease. Prior orthopedic fusion at L3-L4. Impression Impression: 1. Significantly increase in peritoneal carcinomatosis. 2. Development of retroperitoneal, mesenteric, iliac chain and right pericardial fat pad adenopathy. 3. Increased enhancement and thickening of the left bladder dome with adjacent nodularity. 4. Small volume malignant ascites. 5. Stable calcified and noncalcified pulmonary nodules, likely secondary to prior granulomatous disease. 6. Fatty liver. Recent Results (from the past 24 hour(s)) [facility] RADIOLOGY CREATININE, POINT OF CARE Result Value Ref Range [facility] Radiology Creatinine, Point of Care 1.3 (H) 0.6-1.2 mg/dL Calculated GFR 55 (L) >60 mL/min/1.73 m2 PT/INR (PROTHROMBIN TIME/INR) VENOUS Result Value Ref Range PT (Prothrombin Time) 11 9-12 secs INR 1.1 <4.0 PTT (PARTIAL THROMBOPLASTIN TIME) Result Value Ref Range PTT 25 22-31 secs CBC (COMPLETE BLOOD COUNT) Result Value Ref Range WBC Count 10.5 3.7-10.5 K/MM3 RBC Count 5.71 4.50-6.20 M/MM3 Hemoglobin 16.9 13.2-17.7 g/dL Hematocrit 51 40-52 % MCV (Mean Corpuscular Volume) 88 82-99 FL MCH (Mean Corpuscular Hemoglobin) 30 25-35 PG MCHC (Mean Corpuscular Hemoglobin Concentration) 34 32-36 % Platelet Count 204 150-400 K/MM3 MPV (Mean Platelet Volume) 10.9 9.4-12.3 FL RBC Dist Width-STD 44.8 (H) 35.1-43.9 FL RBC Distrib Width 13.8 9.0-14.5 % HEMOGLOBIN A1C Result Value Ref Range Hemoglobin A1c 6.4 (H) 4.8-6.0 % Estimated Average Glucose 137 mg/dL Cystoscopy Performed by: ASHLEY RODRIGUEZ Ordered by: POP MATA Procedure Details: Cystoscopy (11739) Patient tolerance: Patient tolerated the procedure well with no immediate complications Supervision type: Direct Cystoscopy procedure note Date of procedure: 08/12/2016 Staff surgeon: Pop Mata MD Resident surgeon: None HUMAN SERVICES INSTRUCTOR: Michael Preoperative diagnosis: History of Bladder Cancer Postoperative diagnosis: Bladder Cancer Procedure: Cystoscopy, bladder wash for cytology Anesthesia: Local 2% viscous lidocaine Findings: as below EBL: minimal Procedure details: After the risks and benefits were discussed in detail, informed written consent was obtained and documented in the chart. The patient was brought to the urology procedure suite and placed in the supine position. A multidisciplinary time out was conducted verifying the correct patient, location and procedure. The penis was prepped and draped in the standard sterile fashion. Lidocaine jelly was instilled into the urethra. Once adequate local anesthesia was obtained, a flexible cystoscope was inserted: Urethra: no urethral stricture. Prostate: Normal. Bladder: Findings of left lateral wall nodularity with satellite lesion above nodularity. Bladder wash: Bladder washings were obtained and sent for cytology. The cystoscope was removed. The patient tolerated the procedure well. Dr. Mata was present for the entire procedure. Assessment and Plan: Junior Bennett is a 65 y.o. 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 Possible peritoneal carcinomatosis on prior CT, now with definitive radiographic evidence of carcinomatosis, lymphadenopathy, small volume acites. Now with bladder nodularity. - Extensive discussion with the patient and his that the findings on CT scan today which showed significant increase in peritoneal carcinomatosis along with adenopathy.His cystoscopy today also revealed left lateral wall nodularity. Recommended the following: - TURBT on 08/19 for tissue and potential to try and obtain local control. Urine culture returned as no growth. - Referral back to medical oncology to discuss therapy options given progression of disease - US guided biopsy of lymph nodes vs. Hernia nodule vs. Nodule near liver to confirm tissue diagnosis.CBC and coagulation studies drawn today. Follow-up: 08/19 for TURBT Clinic visit after US guided biopsy with Dr. Mata and Dr. Getachew Rodriguez, [facility] Staff Physician Comments Staff Involved Staff and HUMAN SERVICES INSTRUCTOR (team effort HUMAN SERVICES INSTRUCTOR & Faculty documentation) Staff Physician Statement I performed a substantive portion of the office visit. I personally reviewed ROS, Family History, Social History, Past Medical History as documented above in the HUMAN SERVICES INSTRUCTOR note. I have discussed the case with the HUMAN SERVICES INSTRUCTOR and have personally documented the History of Present Illness, Physical Exam, and Assessment and Plan in the Staff Physician Note section as noted below. Staff Physician Note History of Present Illness: I also talked [id number] with the patient to personally obtain history including assessment of prior workup, pertinent positive, and pertinent negatives. History is notable for: History of recurrent urothelial cancer. I have edited the complete history as above in HUMAN SERVICES INSTRUCTOR note. Physical Exam: Vital signs as documented. General: Alert and in no apparent distress. Abdomen: obese, ventral hernia I counseled the patient [id number] on the following problem(s) and I recommended: Assessment and Plan: Recurrent local and metastatic urothelial cancer - Extensive discussion as above. I have edited the complete Assessment and Plan as above in HUMAN SERVICES INSTRUCTOR note. Follow-up: Return to clinic as above in HUMAN SERVICES INSTRUCTOR note I was present for entire procedure of cystoscopy. Pop Mata MD Cancer Researcher of Urology [facility] HEMOGLOBIN A1C (08/12/2016 12:42 PM) Component Value Range Hemoglobin A1c 6.4(H)Comment: 4.8-6.0 % Glycemic Control Guidelines: Non-diabetic <6% Goal <7% Therapeutic Action >8% Estimated Average Glucose 137Comment: mg/dL The estimated average glucose (eAG) calculated from the HbA1c changed on 27/04.See Laboratory Bulletins in the Department of Pathology Laboratory Services Handbook for a full discussion.Not e that the new calculated glucose will now be lower.The A1c result is unchanged. Specimen Whole Blood CBC (COMPLETE BLOOD COUNT) (08/12/2016 12:42 PM) Component Value Range WBC Count 10.5 3.7-10.5 K/MM3 RBC Count 5.71 4.50-6.20 M/MM3 Hemoglobin 16.9 13.2-17.7 g/dL Hematocrit 51 40-52 % MCV (Mean Corpuscular Volume) 88 82-99 FL MCH (Mean Corpuscular Hemoglobin) 30 25-35 PG MCHC (Mean Corpuscular Hemoglobin Concentration) 34 32-36 % Platelet Count 204 150-400 K/MM3 MPV (Mean Platelet Volume) 10.9 9.4-12.3 FL RBC Dist Width-STD 44.8(H) 35.1-43.9 FL RBC Distrib Width 13.8 9.0-14.5 % Specimen Whole Blood PTT (PARTIAL THROMBOPLASTIN TIME) (08/12/2016 12:42 PM) Component Value Range PTT 25 22-31 secs Specimen Blood PT/INR (PROTHROMBIN TIME/INR) VENOUS (08/12/2016 12:42 PM) Component Value Range PT (Prothrombin Time) 11 9-12 secs INR 1.1 <4.0 Specimen Blood CYTOLOGY NON-DEVELOPMENT GEOLOGIST EXAM (08/12/2016 11:45 AM) Component Value Range Case Report Non-Electro Mechanical Assembler Cytopathology Case: [id number] Authorizing Provider:Ashley Rodriguez ARNP Collected: 08/12/2016 11:45 AM Ordering Location: [facility] - UrologyReceived: 08/12/2016 03:11 PM Pathologist: Scott Cabrales MD Specimen:Bladder Washing Interpretation Bladder washing:Negative for high grade urothelial carcinoma. I have personally reviewed this case and edited the report as necessary. Specimen Description 50 mL yellow fluid Specimen Other - Bladder Washing CT CHEST ABDOMEN PELVIS W CONTRAST ([id number], [id number]) (08/12/2016 10:11 AM) Impressions Impression: 1. Significantly increase in peritoneal carcinomatosis. 2. Development of retroperitoneal, mesenteric, iliac chain and right pericardial fat pad adenopathy. 3. Increased enhancement and thickening of the left bladder dome with adjacent nodularity. 4. Small volume malignant ascites. 5. Stable calcified and noncalcified pulmonary nodules, likely secondary to prior granulomatous disease. 6. Fatty liver. Narrative Procedure: CT CHEST ABDOMEN PELVIS W CONTRAST ([id number], [id number]) Clinical Indication: History of bladder cancer and nodules on prior CT. PET negative and biopsy negative. Evaluate for interval change. Technique: CT exam of the chest, abdomen, and pelvis is performed following the uneventful administration of 100 cc Isovue-370 IV contrast.7 minute delayed images were obtained. Comparison: PET imaging 03/29/2016, CT abdomen and pelvis 03/25/2016 Findings: Neck base and axilla: 7 mm right isthmic hypodense thyroid nodule. No adenopathy. Mediastinum and leona: 8 mm left upper paratracheal lymph node, stable. Calcified mediastinal lymph nodes. Heart and thoracic aorta: Normal. Enlarged right pericardial fat pad lymph nodes with the largest measuring 9 mm in short axis. Minimal soft tissue seen in the prior examination this region (2-73). Airway: Patent. Lungs and pleura: A 7 x 3 mm spiculated nodule in the anterior aspect of the right upper lobe does not appear changed from recent PET exam. No discrete increased uptake is seen on the prior PET. Additional scattered calcified and noncalcified pulmonary nodules are seen. Noncalcified pulmonary nodule in the left lower lobe measures 3 mm (4-60). Esophagus: Normal. Chest wall soft tissues: Normal Liver: Diffuse decreased density of the liver. No focal hepatic lesions. Bile ducts: Not dilated. Gallbladder: Normal. Pancreas: Normal Spleen: Mild enlargement spanning 13.8 cm. Adrenal glands: Two right adrenal myolipomas remain stable. Left gland is absent. Kidneys: Stable right renal cysts. Left kidney is surgically absent. Ureters: Normal Bladder: Increased abnormal enhancement wall thickening involving the left bladder dome. Aorta: Scattered calcific plaquing. Retroperitoneum: Development of aortocaval and periaortic adenopathy, mainly in the infrarenal area. Largest lymph node measures 1.8 cm in short axis (2-132). Peritoneum: Increase in diffuse carcinomatosis with studding along the left hepatic lobe anteriorly. Multiple nodules in the ventral abdomen including within the left ventral abdominal hernia. Associated malignant ascites in the pericolic gutters. Mesentery: Increased necrotic appearing nodules predominantly in the SIMRAN distribution measuring up to 1.6 cm in short axis. Stomach: Small hiatal hernia. Small bowel: Not distended. Colon: Not distended. Appendix: Normal. Extraperitoneal pelvis: Multiple abnormal bilateral iliac chain lymph nodes have increased in size, most pronounced on the left. Multiple enlarged presacral lymph nodes are also seen with the largest measuring 2.0 cm in short axis (2-171). Prostate: Normal Abdominal wall: Ventral abdominal diastases with left sided hernia containing fat and metastatic nodules. Fat-containing bilateral inguinal hernias. Bones: Stable sclerotic lesion in the left ilium, likely benign. Old posterior left 11th rib fracture. Multilevel degenerative disc disease. Prior orthopedic fusion at L3-L4. Procedure Note Eulalio, Incoming Imaging Results - FriAug 12, 2016 5:14 PM 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ET END Procedure: CT CHEST ABDOMEN PELVIS W CONTRAST ([id number], [id number]) Clinical Indication: History of bladder cancer and nodules on prior CT. PET negative and biopsy negative. Evaluate for interval change. Technique: CT exam of the chest, abdomen, and pelvis is performed following the uneventful administration of 100 cc Isovue-370 IV contrast. 7 minute delayed images were obtained. Comparison: PET imaging 03/29/2016, CT abdomen and pelvis 03/25/2016 Findings: Neck base and axilla: 7 mm right isthmic hypodense thyroid nodule. No adenopathy. Mediastinum and leona: 8 mm left upper paratracheal lymph node, stable. Calcified mediastinal lymph nodes. Heart and thoracic aorta: Normal. Enlarged right pericardial fat pad lymph nodes with the largest measuring 9 mm in short axis. Minimal soft tissue seen in the prior examination this region (2-73). Airway: Patent. Lungs and pleura: A 7 x 3 mm spiculated nodule in the anterior aspect of the right upper lobe does not appear changed from recent PET exam. No discrete increased uptake is seen on the prior PET. Additional scattered calcified and noncalcified pulmonary nodules are seen. Noncalcified pulmonary nodule in the left lower lobe measures 3 mm (4-60). Esophagus: Normal. Chest wall soft tissues: Normal Liver: Diffuse decreased density of the liver. No focal hepatic lesions. Bile ducts: Not dilated. Gallbladder: Normal. Pancreas: Normal Spleen: Mild enlargement spanning 13.8 cm. Adrenal glands: Two right adrenal myolipomas remain stable. Left gland is absent. Kidneys: Stable right renal cysts. Left kidney is surgically absent. Ureters: Normal Bladder: Increased abnormal enhancement wall thickening involving the left bladder dome. Aorta: Scattered calcific plaquing. Retroperitoneum: Development of aortocaval and periaortic adenopathy, mainly in the infrarenal area. Largest lymph node measures 1.8 cm in short axis (2-132). Peritoneum: Increase in diffuse carcinomatosis with studding along the left hepatic lobe anteriorly. Multiple nodules in the ventral abdomen including within the left ventral abdominal hernia. Associated malignant ascites in the pericolic gutters. Mesentery: Increased necrotic appearing nodules predominantly in the SIMRAN distribution measuring up to 1.6 cm in short axis. Stomach: Small hiatal hernia. Small bowel: Not distended. Colon: Not distended. Appendix: Normal. Extraperitoneal pelvis: Multiple abnormal bilateral iliac chain lymph nodes have increased in size, most pronounced on the left. Multiple enlarged presacral lymph nodes are also seen with the largest measuring 2.0 cm in short axis (2-171). Prostate: Normal Abdominal wall: Ventral abdominal diastases with left sided hernia containing fat and metastatic nodules. Fat-containing bilateral inguinal hernias. Bones: Stable sclerotic lesion in the left ilium, likely benign. Old posterior left 11th rib fracture. Multilevel degenerative disc disease. Prior orthopedic fusion at L3-L4. IMPRESSION Impression: 1. Significantly increase in peritoneal carcinomatosis. 2. Development of retroperitoneal, mesenteric, iliac chain and right pericardial fat pad adenopathy. 3. Increased enhancement and thickening of the left bladder dome with adjacent nodularity. 4. Small volume malignant ascites. 5. Stable calcified and noncalcified pulmonary nodules, likely secondary to prior granulomatous disease. 6. Fatty liver. [facility] RADIOLOGY CREATININE, POINT OF CARE (08/12/2016 8:39 AM) Component Value Range [facility] Radiology Creatinine, Point of Care 1.3(H) 0.6-1.2 mg/dL Calculated GFR 55(L) >60 mL/min/1.73 m2 Specimen Blood
--- OUTSIDE RECORDS SUMMARY | 2016-11-10 13:31 | XMS REPORT | Summary of Care ---
:1950 Author Organization [facility] Address [address] [place] [address] Care Team Providers Name Role Phone Abhishek Arias Primary Care Physician Encounter Date(s): 09/25/16 - 09/25/16 [facility], [address] [place], [place] [address] Discharge Disposition: 01 Discharged to Home or Self Care Attending Physician: Joe Henry MD Referring Physician: Joe Henry MD Vital Signs Most recent to oldest [Reference Range]: 1 Blood Pressure [90-130/60-90 mmHg] 152/82mmHg *HI* (09/25/16 2:56 PM) Mean Arterial Pressure, Cuff 105 mmHg (09/25/16 2:56 PM) Height/Length Measured 172 cm (09/25/16 2:56 PM) Weight Dosing 131.00 kg1 (09/25/16 2:59 PM) Weight Measured 131 kg (09/25/16 2:56 PM) BSA Measured 2.38 m2 (09/25/16 2:56 PM) Body Mass Index Measured 44.28 kg/m2 (09/25/16 2:56 PM) 1Result Comment: This result was because the dosing weight was either not entered or it is>30 days old. This result is based off: Weight Measured September 25, 2016 14:56:00 FARM AGENT by Francesca Narvaez RN Problem List Condition Effective Dates Status Health Status Informant Bladder cancer(Confirmed) Active Ureteral cancer(Confirmed) Active Sleep apnea(Confirmed) Active Allergies, Adverse Reactions, Alerts Substance Reaction Severity Status sulfonamides Active Medications amLODIPine 10 mg oral tablet 1 tab(s), Oral, Daily, # 30 tab(s), 0 Refill(s) Start Date: 02/08/14 Status: OrderedAtacand 32 mg oral tablet 1 tab(s), Oral, Daily, # 30 tab(s), 0 Refill(s) Start Date: 02/08/14 Status: Orderedciprofloxacin 500 mg oral tablet 1 tab(s), Oral, q12hr interval, # 6 tab(s), 0 Refill(s) Start Date: 06/23/14 Stop Date: 09/25/16 Status: Completedfinasteride 5 mg oral tablet 1 tab(s), Oral, Daily, # 30 tab(s), 11 Refill(s), Start Date: 09/23/14 12:36:00 FARM AGENT, Pharmacy: [place], [place] Start Date: 09/23/14 Stop Date: 11/07/15 Status: Completedfinasteride 5 mg oral tablet 1 tab(s), Oral, Daily, # 30 tab(s), 0 Refill(s) Start Date: 02/08/14 Stop Date: 09/23/14 Status: Discontinuedfinasteride 5 mg oral tablet 1 tab(s), Oral, Daily, # 30 tab(s), 11 Refill(s), Start Date: 11/07/15 15:53:15 FARM AGENT, Pharmacy: [place], [place] Start Date: 11/07/15 Status: Orderedglimepiride 2 mg oral tablet 1 tab(s), Oral, Daily, # 30 tab(s), 0 Refill(s), Start Date: 09/25/16 14:57:00 FARM AGENT Start Date: 09/25/16 Status: OrderedhydrALAZINE 50 mg oral tablet 1 tab(s), Oral, TID, # 90 tab(s), 0 Refill(s) Start Date: 02/08/14 Stop Date: 06/23/14 Status: CompletedMetoprolol Succinate ER 100 mg oral tablet, extended release 1 tab(s), Oral, Daily, # 30 tab(s), 0 Refill(s) Start Date: 02/08/14 Status: Orderedpotassium chloride 20 mEq oral tablet, extended release 1 tab(s), Oral, Daily, # 30 tab(s), 0 Refill(s) Start Date: 02/08/14 Stop Date: 06/23/14 Status: Completedsimvastatin 40 mg oral tablet 1 tab(s), Oral, HS, # 90 tab(s), 0 Refill(s) Start Date: 02/08/14 Status: Orderedspironolactone 25 mg oral tablet 1 tab(s), Oral, BID, # 180 tab(s), 0 Refill(s), Start Date: 09/25/16 14:57:00 FARM AGENT Start Date: 09/25/16 Status: Orderedtamsulosin 0.4 mg oral capsule 1 cap(s), Oral, Daily, at bedtime, # 30 cap(s), 11 Refill(s), Start Date: 9:19:10 FARM AGENT, Pharmacy: [place], [place] Start Date: 09/25/16 Status: Orderedtamsulosin 0.4 mg oral capsule 1 cap(s), Oral, Daily, at bedtime, # 30 cap(s), 11 Refill(s), Start Date: 10:01:12 FARM AGENT, Pharmacy: [place], [place] Start Date: 08/22/15 Stop Date: 09/25/16 Status: Completedtamsulosin 0.4 mg oral capsule 1 cap(s), Oral, Daily, at bedtime, # 30 cap(s), 0 Refill(s) Start Date: 02/08/14 Stop Date: 08/12/14 Status: Discontinuedtamsulosin 0.4 mg oral capsule 1 cap(s), Oral, Daily, at bedtime, # 30 cap(s), 11 Refill(s), Start Date: 15:29:00 FARM AGENT, Pharmacy: [place], [place] Start Date: 08/12/14 Stop Date: 08/22/15 Status: CompletedVicodin 5 mg-325 mg oral tablet 1 tab, Oral, q6hr interval, # 30 tab(s), 0 Refill(s) Start Date: 06/23/14 Status: Ordered Results No data available for this section Immunizations Given and Recorded Vaccine Date Status Refusal Reason BCG1 02/24/14 Given BCG2 02/17/14 Given BCG3 02/10/14 Given 1Result Comment: One third vial of BCG mixed with Interferon Abdiaziz 2B per Dr. CRANE.2Result Comment: Pt here for Maintenance A BCG and interferon treatment [address] lockett, 09/17 vial of BCG mixed with 50mu of interferon. pt tolerated well.3Result Comment: Pt here for Maintenance A BCG with interferon abdiaziz 2-b per Dr. Gutierrez 09/10 vial of BCG mixed with 50MU of interferon abdiaziz 2-b Procedures Procedure Date Related Diagnosis Body Site Cystoscopy - SN1 06/23/14 Bladder biopsy sample 2012 Arthroscopy of left knee back surgery left ankle surgery2 Left Carpal Tunnel Umbilical Hernia Repair Uvulectomy 1auto-populated from documented surgical [id number] ankle Social History No data available for this section Assessment and Plan No data available for this section
--- OUTSIDE RECORDS SUMMARY | 2016-11-10 13:31 | XMS REPORT | Summary of Care ---
:1950 Author Organization [facility] Address [address] [place] [id number] Care Team Providers Name Role Phone HugoAbhishek Primary Care Physician Encounter Date(s): 09/27/16 - 09/27/[address] [address] Discharge Disposition: Discharged to Home or Self Care Attending Physician: Joe Henry MD Admitting Physician: Joe Henry MD Vital Signs No data available for this section Problem List Condition Effective Dates Status Health [...] tab(s), 11 Refill(s), Start Date: 09/23/14 12:36:00 LIQUOR INSPECTOR, Pharmacy: [facility] [place], [place] Start Date: 09/23/14 Stop Date: 11/07/15 Status: Completedfinasteride 5 mg oral tablet 1 tab(s), Oral, Daily, # 30 tab(s), 0 Refill(s) Start Date: 02/08/14 Stop Date: 09/23/14 Status: Discontinuedfinasteride 5 mg oral tablet 1 tab(s), Oral, Daily, # 30 tab(s), 11 Refill(s), Start Date: 11/07/15 15:53:15 LIQUOR INSPECTOR, Pharmacy: [place], [place] Start Date: 11/07/15 Status: Orderedglimepiride 2 mg oral tablet 1 tab(s), Oral, Daily, # 30 tab(s), 0 Refill(s), Start Date: 09/25/16 14:57:00 LIQUOR INSPECTOR Start Date: 09/25/16 Status: OrderedhydrALAZINE 50 mg [...] tab(s), 0 Refill(s), Start Date: 09/25/16 14:57:00 LIQUOR INSPECTOR Start Date: 09/25/16 Status: Orderedtamsulosin 0.4 mg oral capsule 1 cap(s), Oral, Daily, at bedtime, # 30 cap(s), 11 Refill(s), Start Date: 9:19:10 LIQUOR INSPECTOR, Pharmacy: [place], [place] Start Date: 09/25/16 Status: Orderedtamsulosin 0.4 mg oral capsule 1 cap(s), Oral, Daily, at bedtime, # 30 cap(s), 11 Refill(s), Start Date: 10:01:12 LIQUOR INSPECTOR, Pharmacy: [place], [place] Start Date: 08/22/15 Stop Date: 09/25/16 Status: Completedtamsulosin 0.4 mg oral capsule 1 cap(s), Oral, Daily, at bedtime, # 30 cap(s), 0 Refill(s) Start Date: 02/08/14 Stop Date: 08/12/14 Status: Discontinuedtamsulosin 0.4 mg oral capsule 1 cap(s), Oral, Daily, at bedtime, # 30 cap(s), 11 Refill(s), Start Date: 15:29:00 LIQUOR INSPECTOR, Pharmacy: [place], [place] Start Date: 08/12/14 Stop Date: 08/22/15 [...] with interferon abdiaziz 2-b per Dr. Gutierrez / vial of BCG mixed with 50MU of interferon abdiaziz 2-b Procedures Procedure Date Related Diagnosis Body Site Cystoscopy - SN1 06/23/14 Bladder biopsy sample 2013 Arthroscopy of left knee back surgery left ankle surgery2 Left Carpal Tunnel Umbilical Hernia Repair Uvulectomy 1auto-populated from documented surgical [id number] ankle Social History No data available for this section Assessment and Plan No data available for this section
--- NOTE | 2016-11-10 13:34 | ERNOTE ---
Lower Extremity HPI - Narrative Date of Service: 11/10/16 - General Lower Extremities Pain: leg: right - Anterios Swelling and Redness Time Seen by Provider: 11/10/16 13:11 Source: patient Exam Limitations: no limitations - Immun/Allergies/Home Medications Immunizations: IMMUNIZATION HX History of Influenza Vaccine Yes Hx Pneumococcal Vaccination Yes Allergies/Adverse Reactions: Allergies Allergy/AdvReac Type Severity Reaction Status Date / Time Sulfa (Sulfonamide AdvReac Unknown Verified 11/10/16 12:42 Antibiotics) [Sulfa(Sulfonamide Antibiotics)] Home Medications: HOME MEDICATIONS Metoprolol Succinate 100 mg PO DAILY 08/12/12 [Last Taken 10/11/14] Tadalafil [Cialis] 20 mg PO DAILY PRN 08/12/12 [Last Taken 10/11/14] Finasteride [Proscar] 5 mg PO HS 10/11/14 [Last Taken 10/10/14] Spironolactone [Aldactone] 25 mg PO DAILY 10/11/14 [Last Taken 10/11/14] Tamsulosin HCl [Flomax] 0.4 mg PO DAILY@1800 10/11/14 [Last Taken 10/10/14] amLODIPine BESYLATE [Norvasc] 10 mg PO DAILY 10/11/14 [Last Taken 10/11/14] Acetaminophen [Tylenol] 650 mg PO QID PRN #1 tablet 10/12/14 [Last Taken Unknown ] Cephalexin Monohydrate [Keflex] 500 mg PO Q6H #28 capsule 11/10/16 [Last Taken Unknown] Glimepiride [Amaryl] 2 mg PO DAILY 11/10/16 [Last Taken Unknown] - History of Present Illness Narrative: Patient comes due to R leg anterior swelling and redness. Patient is worry about DVT, but has no posterior leg pain and no generalized leg swelling. Occurred: this morning Location of Incident: home Method of Injury: Reports: unknown. Denies: direct blow Reason for Fall: Reports: other - no fall reported Loss of Consciousness: Reports: no loss of consciousness Modifying Factors - (Improves): Reports: other - nothing Modifying Factors - (Worsens): Reports: other - nothing Associated Symptoms: Reports: none. Denies: unable to bear weight, snapping, popping sensation, dizzy/light headedness, headache, weakness, sensory loss, chest pain, vomiting/diarrhea, bowel/bladder problems, other injuries Other Injuries: Reports: none Subsequent Symptoms: Denies: sensory loss Prior Treament: Denies: recently seen Review of Systems - Review of Systems Constitutional: Present: fever - subjective, malaise. Absent: chills EYE: Present: no symptoms reported ENT: Present: no symptoms reported Respiratory: Present: no symptoms reported Cardiology: Present: no symptoms reported Gastrointestinal/Abdominal: Present: no symptoms reported Genitourinary: Present: no symptoms reported Musculoskeletal: Present: no symptoms reported Skin: Present: rash. Absent: dryness, lesions, change in color Neurological: Present: no symptoms reported Endocrine: Present: no symptoms reported Hematologic/Lymphatic: Present: no symptoms reported Psych: Present: no symptoms reported All Other Systems: All systems neg except as marked - Patient's Past Medical History Patient History - Medical: Diabetes Type 2 Patient History - Cardiac/Respiratory: Hypertension Patient History - Cancer: Bladder Patient History - Surgical Procedures: Cancer Surgery, Other - Family History Father Family History - Medical: Diabetes Type 2 - Social History Living Situations: home Does anyone smoke in the home?: No Alcohol Use: rarely Drug Use: none - Immunizations Hx Pneumococcal Vaccination: Yes History of Influenza Vaccine: Yes Physical Exam - Physical Exam General Appearance: Present: wd/wn, alert, no apparent distress Eye Exam: Normal inspection: bilateral Ears, Nose, Throat: Present: normal ENT inspection Respiratory: Present: no respiratory distress. Absent: respiratory distress, accessory muscle use Cardiovascular/Chest: Present: normal peripheral pulses Gastrointestinal/Abdominal: Present: nontender Back Exam: Present: normal inspection Extremity Exam: Present: no edema, other - Patient with localized erythema on the medial side of the R leg area. Patient with no open wounds. No pain on the calf and no generalized weakness.. Absent: calf tenderness, joint redness, joint swelling Neurological Exam: Present: alert, oriented, normal mood/affect, no motor/ sensory deficits Skin Exam: Present: normal color, skin rash, other - There is erythema on the R mid leg area. No open wounds noticed on examination.. Absent: cyanosis, jaundice, pallor Lymphatic Exam: Present: no adenopathy ED Progress - Date and Time Seen: Date and Time: 11/10/16 13:29 Patient has been scheduled for out patient US tomorrow. At this point patient has a low probability for DVT. Wells' Score: 1 (Low Risk due to Active CA) - Vital Signs Patient's Vital Signs:: I have reviewed the patient's vital signs. Vital Signs: Vital Signs 11/10/16 12:38 Temperature 37.4 C Pulse Rate 71 Respiratory 12 Rate Blood Pressure 123/74 O2 Sat by Pulse 96 Oximetry - Progress/Reassessment Chief Complaint: Lower Extremity Pain/ Injury - Transfer of Care Expected Disposition: Discharge Plan - Plan Plan: US tomorrow has been coordinated Departure Clinical Impression: Cellulitis Qualifiers: Site of cellulitis: extremity Site of cellulitis of extremity: lower extremity Laterality: right Qualified Code(s): L03.115 - Cellulitis of right lower limb - Departure Disposition: Home self-care Condition: Stable Instructions: Cellulitis, Adult, [id number] Additional Instructions: Please return to complete your Ultra Sound of the leg. Referrals: Abhishek Arias MD [Primary Care Provider] - Prescriptions: Cephalexin Monohydrate [Keflex] 500 mg PO Q6H #28 capsule
[2016-11-10 13:42] VITALS: BP 126/70
== END 2016-11-10 13:39 | disposition home or self-care (01) ==
LOC: ER 12:36
DX: L03.115 Cellulitis of right lower limb (principal); E11.9 Type 2 diabetes mellitus without complications; I10 Essential (primary) hypertension; Z85.51 Personal history of malignant neoplasm of bladder

== ENCOUNTER 2016-12-28 13:24 | Emergency (ER) | payer BC, MEDICARE ==
[2016-12-28] MEDS ORDERED: ALBUTEROL SULFATE/IPRATROPIUM 3 ML NEBU IH ONE ×2 (13:37→13:51)
[2016-12-28] MEDS ORDERED: FUROSEMIDE 10 MG/ML VIAL IV ONE (13:37)
--- NOTE | 2016-12-28 13:47 | ERNOTE ---
Dyspnea - Date Date of Service: 12/28/16 - General Presenting Symptoms: shortness of breath, difficulty of breathing Time Seen by Provider: 12/28/16 13:32 Source: patient Exam Limitations: no limitations - Immun/Allergies/Home Medications Immunizations: IMMUNIZATION HX History of Influenza Vaccine Yes Hx Pneumococcal Vaccination Yes Allergies/Adverse Reactions: Allergies Sulfa (Sulfonamide Antibiotics) [Sulfa(Sulfonamide Antibiotics)] Adverse Reaction (Unknown, Verified 12/28/16 13:39) Home Medications: HOME MEDICATIONS Metoprolol Succinate 100 mg PO DAILY 08/12/12 [Last Taken 10/11/14] Finasteride [Proscar] 5 mg PO HS 10/11/14 [Last Taken 10/10/14] Spironolactone [Aldactone] 25 mg PO DAILY 10/11/14 [Last Taken 10/11/14] amLODIPine BESYLATE [Norvasc] 10 mg PO DAILY 10/11/14 [Last Taken 10/11/14] Acetaminophen [Tylenol] 650 mg PO QID PRN #1 tablet 10/12/14 [Last Taken Unknown ] Glimepiride [Amaryl] 2 mg PO DAILY 11/10/16 [Last Taken Unknown] - History of Present Illness Narrative: Patient comes due to SOB that is worse on exertion. Patient reported that he got his last chemotherapy a week ago. Patient has been coughing and producing more sputum. No Hx of fever reported by patient. Severity: moderate Initiating event: Reports: unknown. Denies: upper resp illness, out of meds, sports/exercise, aspiration/choking, allergy to food, allergy to environment, allergy to unknown, exposure to smoke, exposure to mold, emotionally upset Frequency of episodes: Reports: no prior episodes Modifying Factors - (Improves): Reports: nothing Modifying Factors (Worsens): Reports: activity, other - supine position Associated Symptoms-Dyspnea: Reports: cough, ankle/leg swelling. Denies: chest pain/discomfort, dizziness, loss of appetite Prior Treatment: Reports: recently seen - Patient is been Tx for bladder CA Review of Systems - Review of Systems Constitutional: Present: chills, weakness, fatigue, malaise. Absent: diaphoresis EYE: Absent: eye pain, eye discharge ENT: Present: no symptoms reported Respiratory: Present: shortness of breath, cough - with more secreation, orthopnea. Absent: wheezing Cardiology: Present: edema - both legs. Absent: chest pain, palpitations, syncope Gastrointestinal/Abdominal: Absent: nausea, vomiting, diarrhea Genitourinary: Present: no symptoms reported Musculoskeletal: Present: no symptoms reported Skin: Present: no symptoms reported Neurological: Present: no symptoms reported Endocrine: Present: no symptoms reported Hematologic/Lymphatic: Present: no symptoms reported Psych: Present: no symptoms reported All Other Systems: All systems neg except as marked - Patient's Past Medical History Patient History - Medical: Diabetes Type 2 Patient History - Cardiac/Respiratory: Hypertension Patient History - Cancer: Bladder Patient History - Surgical Procedures: Cancer Surgery, Other - Family History Father Family History - Medical: Diabetes Type 2 - Social History Living Situations: home Does anyone smoke in the home?: No Alcohol Use: rarely Drug Use: none - Immunizations Hx Pneumococcal Vaccination: Yes History of Influenza Vaccine: Yes Physical Exam - Physical Exam General Appearance: Present: alert, mild distress Eye Exam: Normal inspection: bilateral, PERRL: bilateral, EOMI: bilateral Ears, Nose, Throat: Present: normal ENT inspection, normal pharynx. Absent: dry mucous membranes Neck: Present: normal inspection, nontender Respiratory: Present: respiratory distress - mild, expiration (prolonged), rales - Bilateral. Absent: chest tenderness Cardiovascular/Chest: Present: normal peripheral pulses, bradycardia. Absent: JVD Gastrointestinal/Abdominal: Present: normal bowel sounds, nontender, nondistended, soft, no organomegaly Back Exam: Present: normal inspection, normal range of motion, no CVA tenderness , no vertebral tenderness Extremity Exam: Present: normal inspection, non-tender, normal range of motion, extremity edema - pitting +3 bilateral Neurological Exam: Present: alert, oriented, normal mood/affect, no motor/ sensory deficits Skin Exam: Present: normal color, warm/dry Lymphatic Exam: Present: no adenopathy ED Progress - Date and Time Seen: Date and Time: 12/28/16 13:46 Patient was found with a Hx of PE/DVT on previous visits. 12/28/16 15:30 Patient was found with Bilateral PE. Tx with Heparin was started. Due to ventricular strain patient will need Tx with heparin and to be in a facility with Interventional Radiology Service. 12/28/16 15:35 I had called [facility] and requested transfer. 12/28/16 15:39 Patient has been informed of findings and the need of transfer. Patient wants to go [facility] because he has been seen there before. Patient hsa refused Air Transport patient wants to go by Ground. Risk and Benefits has been explained. Patient was accepted by Dr. Raygoza 12/28/16 15:46 Patient changed his mind and has allow to be taken by air. - Results and Orders Patient's Lab Results:: I have reviewed the patient's lab results. Results and Orders: CBC: Low WBC CMP: Creat: 1.54 ABG: Low CO2 BNP: Positive - Vital Signs Patient's Vital Signs:: I have reviewed the patient's vital signs. Vital Signs: VS on chart were noticed. - EKG EKG: NSR EKG read: Interp. by me EKG Comments: HR: 55, S. Vijay, No ST Elevation, LAD-LVH, No changes from previous EKG - X-Ray X-Ray #1 X-Ray: chest X-ray Comments: Radiology Report was read. - CT/Ultrasound CT/Ultrasound Narrative: CTA of Chest: Positive for bilateral PE. Radiology called and gave report and report was read. - Progress/Reassessment Progress:: Unchanged - Transfer of Care Expected Disposition: Transfer Departure Clinical Impression: Dyspnea Pulmonary embolism Qualifiers: Pulmonary embolism type: other Chronicity: acute Acute cor pulmonale presence: without acute cor pulmonale Qualified Code(s): I26.99 - Other pulmonary embolism without acute cor pulmonale - Departure Disposition: [facility] Condition: Serious Referrals: Abhishek Arias MD [Primary Care Provider] -
--- OUTSIDE RECORDS SUMMARY | 2016-12-28 13:51 | XMS REPORT | Continuity of Care Document ---
:1950 Author Organization [facility] [place] [address] Care Team Providers Name Role Phone Unavailable Primary Care Provider Unavailable Source Comments This disclosure is being made pursuant to the [employer] program and maynot contain all information available regarding this patient.[facility] Active Allergies and Adverse Reactions Not on [...]
--- OUTSIDE RECORDS SUMMARY | 2016-12-28 13:52 | XMS REPORT | Continuity of Care Document ---
:1950 Author Organization [facility] ([facility]) Address [address] [place] [address] Phone [phone] Care Team Providers Name Role Phone Abhishek Arias Primary Care Provider [phone] Source Comments This disclosure is being made pursuant to the Care Everywhere program, applicable federal and state laws, and may not contain all informaitonavailable regarding this patient.[facility] ([facility]) Active Allergies and Adverse Reactions Allergen Noted Date Severity Reactions Comments Sulfa (Sulfonamide Antibiotics) 01/22/2012 NO REACTION Current Medications Prescription Sig. Disp. Refills Start Date End Date Status amLODIPine 10 mg Take 10 mg by Active tablet mouth daily. acetaminophen (TYLENOL Take 500 mg by Active EXTRA STRENGTH) 500 mg mouth every 4 tablet hours as needed. spironolactone 25 mg Take 25 mg by Active tablet mouth daily. finasteride 5 mg Take 5 mg by Active tablet mouth every evening. SUPPLY syringe Inject by 1 Syringe 0 05/01/2015 Active (disposable) 10 mL injection once glimepiride 2 mg Take 2 mg by 6 07/27/2015 Active tablet mouth daily losartan-hydrochloroth Take 1 tablet by 8 12/14/2015 Active iazide 100-12.5 mg per mouth daily. tablet CIALIS 20 mg tablet as instructed. 3 03/09/2016 Active SUPPLY ONE TOUCH ULTRA 06/14/2016 Active test strips metoPROLol succinate Take 1 tablet 90 tablet 3 07/09/2016 Active 100 mg XL tablet (100 mg total) by mouth daily. tamsulosin 0.4 mg Take 0.4 mg by 11 07/31/2016 Active capsule mouth at bedtime. temazepam 15 mg Take 1 capsule 20 capsule 0 10/14/2016 Active capsule (15 mg total) by mouth at bedtime as needed for Sleep or Anxiety (May repeat x 1, to take a maximum of Restoril 30 MG PO QHS). cephalexin 500 mg 11/10/2016 Active capsule Active Problems Problem Noted Date Malignant neoplasm [...] be different from the original. 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 [...] Recent Encounters Date Type Specialty Providers Description 12/27/2016 Telephone [facility] Mckeon Chief Comp: Trevor RN Appointment Request 12/09/2016 Hospital Encounter Hematology and Sarkis Smith Dx: Malignant Oncology MD Jagdish neoplasm 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 of bladder (Primary Dx) 11/25/2016 Hospital Encounter Hematology and Sarkis Smith Subj: Appointment Oncology MD Jagdish Canceled 11/11/2016 Hospital Encounter Hematology and Sark[facility] Smith Dx: Cellulitis of Oncology MD Jagdish right lower extremity (Primary Dx) 10/21/2016 Hospital Encounter Hematology and Sarkis Smith Subj: Upcoming Appt Oncology MD Jagdish Reminder 10/14/2016 Hospital Encounter Hematology and Sarkis Smith Dx: Urinary tract Oncology MD Jagdish infection, site unspecified (Primary Dx) Immunizations Name Dates Previously Given Next Due Influenza, unspecified 06/20/2014,06/08/2012 Social History Tobacco Use Types Packs/Day Years Used Date Never Smoker Smokeless Tobacco: Never Used Tobacco Cessation:Counseling Given: Yes Comments: Alcohol Use Drinks/Week oz/Week Comments No very rare Last Filed Vital Signs Vital Sign Reading Time Taken Blood Pressure 166/98 12/09/2016 12:03 PM CDT Pulse 68 12/09/2016 12:03 PM CDT Temperature 37.2 C (99 F) 12/09/2016 12:03 PM CDT Respiratory Rate 16 12/09/2016 12:03 PM CDT Height 1.727 m (5' 8") 12/09/2016 12:03 PM CDT Weight 126.667 kg (279 lb 4 oz) 12/09/2016 12:03 PM CDT Body Mass Index 42.47 12/09/2016 12:03 PM CDT Oxygen Saturation 92% 12/09/2016 12:03 PM CDT Plan of Care Date Type Specialty Providers Description 12/30/2016 Appointment Urology Grady Riggs MD Subj: Upcoming Appt [address] [place] [address] [phone] (Fax) 01/07/2017 Appointment Heart and Vascular Gayatri Leon MD Subj: Appointment [address] [place] [address] [phone] (Fax) Health Maintenance Due Date Last Done Comments HCV Screening 1950 Hepatitis B Vaccine (1 of 3 - Primary 1950 Series) Tdap Vaccine 1961 Lipid Disorder Screening 1968 Td Vaccine 1968 Colonoscopy 09/05/2000 Prostate Cancer Screening 2000 Zoster Vaccine 2010 Pneumococcal Vaccine (1 of 2 - PCV13) 2015 Influenza Vaccine: Seasonal (Season Ended) 2017 06/20/2014, 06/08/2012 Results from Last 3 Months Not on file
[2016-12-28 13:57] LABS: Hematocrit 28.4 % (42.0-52.0); Hemoglobin 9.7 gm/dL (13.5-18.0); Mean Cell Volume 92.2 fl (78-100); Mean Corpuscular Hemoglobin 31.5 pg (27-31); Mean Corpuscular Hgb Conc 34.2 g/dl (32-36); NRBC# 0.1 k/mm3 (0-1); Neutrophil % 65.5 % (42-75.0); Platelet Count 59 K/mm3 (150-450); Red Blood Count 3.08 M/mm3 (4.7-6.0); Red Cell Distribution Width 17.7 % (11.5-14.0)
[2016-12-28] MEDS ORDERED: FUROSEMIDE 10 MG/ML VIAL ONE (14:09)
[2016-12-28 14:15] VITALS: BP 157/74
[2016-12-28 14:20] LABS: ALT 36 U/L (19-67); AST 29 U/L (0-48); Albumin * 3.1 gm/dl (3.4-5.0); Alkaline Phosphatase * 77 U/L (50-170); Anion Gap 11.1 mmol/L (6.8-13.8); BNP * 675 pg/mL (5-350); BUN/Creatinine Ratio 14.9 (9.0-21.6); Bilirubin, Total 0.6 mg/dL (0.0-1.1); Blood Urea Nitrogen 23 mg/dL (6-23); Ca. Corrected For Albumin 9.5 mg/dL (8.4-10.2); Calcium * 9.1 mg/dL (7.9-10.9); Carbon Dioxide 29.6 mmol/L (24-32.6); Chloride 106 mmol/L (97-106); Glucose * 113 mg/dL (70-110); Potassium 3.7 mmol/L (3.4-4.6); Sodium 143 mmol/L (132-142); Troponin I Less than 0.017 ng/ml (0.00-0.10)
[2016-12-28] MEDS ORDERED: HEPARIN SODIUM,PORCINE 5,000 UNITS/ML VIAL ONE (15:17)
[2016-12-28] MEDS ORDERED: HEPARIN SODIUM,PORCINE 5,000 UNITS/ML VIAL SC ONE (15:19)
[2016-12-28] MEDS ORDERED: HEPARIN SODIUM,PORCINE/D5W 25,000 UNITS/500 ML BAG IV SCH (15:30)
[2016-12-28 15:35] LABS: Prothrombin Time (Patient) 11.2 Seconds (9.4-11.4)
[2016-12-28 15:36] LABS: INR 1.08 INR (0.90-1.10); Partial Thrombolplastin Time 22.9 Seconds (24-32)
== END 2016-12-28 16:08 | disposition short-term general hospital (02) ==
LOC: ER 13:24
PROC: 4A033R1 Measurement of Arterial Saturation, Peripheral, Percutaneous Approach (ICD-10-PCS; principal; 2016-12-28)
DX: I26.99 Other pulmonary embolism without acute cor pulmonale (principal); R06.00 Dyspnea, unspecified; Z85.51 Personal history of malignant neoplasm of bladder; E11.9 Type 2 diabetes mellitus without complications; I10 Essential (primary) hypertension

== ENCOUNTER 2017-01-02 12:40 | Emergency (ER) | payer BC, MEDICARE ==
[2017-01-02] MEDS ORDERED: ONDANSETRON HCL/PF 2 MG/ML VIAL IV ONE (12:53)
[2017-01-02] MEDS ORDERED: NORMAL SALINE 1,000 ML IV ONE (12:53)
--- OUTSIDE RECORDS SUMMARY | 2017-01-02 13:10 | XMS REPORT | Continuity of Care Document ---
:1950 Author Organization [facility] [place] [address] Care Team Providers Name Role Phone Unavailable Primary Care Provider Unavailable Source Comments This disclosure is being made pursuant to the [employer] program and maynot contain all information available regarding this patient.[facility] Active Allergies and Adverse Reactions Not on [...]
--- OUTSIDE RECORDS SUMMARY | 2017-01-02 13:10 | XMS REPORT | Continuity of Care Document ---
:1950 Author Organization [facility] ([facility]) Address [address] [place] [address] Phone [phone] Care Team Providers Name Role Phone Abhishek Arias Primary Care Provider [phone] Source Comments This disclosure is being made pursuant to the Care Everywhere program, applicable federal and state laws, and may not contain all informaitonavailable regarding this patient.[facility] ([facility]) Active Allergies and Adverse Reactions Allergen Noted Date Severity Reactions Comments Sulfa (Sulfonamide Antibiotics) 01/22/2012 NO REACTION Current Medications Prescription Sig. Disp. Refills Start Date End Date Status amLODIPine 10 mg Take 10 mg by mouth Active tablet daily. acetaminophen Take 500 mg by mouth Active (TYLENOL EXTRA every 4 hours as STRENGTH) 500 mg needed. tablet spironolactone 25 mg Take 25 mg by mouth Active tablet daily. finasteride 5 mg Take 5 mg by mouth Active tablet every evening. SUPPLY syringe Inject by injection 1 Syringe 0 05/01/2015 Active (disposable) 10 mL once glimepiride 2 mg Take 2 mg by mouth 6 07/27/2015 Active tablet daily losartan-hydrochloro Take 1 tablet by 8 12/14/2015 Active thiazide 100-12.5 mg mouth daily. per tablet CIALIS 20 mg tablet as instructed. 3 03/09/2016 Active SUPPLY ONE TOUCH 06/14/2016 Active ULTRA test strips metoPROLol succinate Take 1 tablet (100 90 tablet 3 07/09/2016 Active 100 mg XL tablet mg total) by mouth daily. tamsulosin 0.4 mg Take 0.4 mg by mouth 11 07/31/2016 Active capsule at bedtime. temazepam 15 mg Take 1 capsule (15 20 capsule 0 10/14/2016 Active capsule mg total) by mouth at bedtime as needed for Sleep or Anxiety (May repeat x 1, to take a maximum of Restoril 30 MG PO QHS). cephalexin 500 mg 11/10/2016 Active capsule enoxaparin 120 Inject 1 syringe 60 Syringe 3 12/30/2016 Active mg/0.8 mL injection (120 mg) syringe subcutaneously every 12 hours. Active Problems Problem Noted Date PE (pulmonary thromboembolism) 12/28/2016 Malignant neoplasm 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 of bladder [...] be different from the original. 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 Pharmacy Visit 12/29/2016 Hospital Encounter Heart and Vascular Rickey, Subj: Appointment MD Mae Scheduled 12/28/2016 - Hospital Encounter General Care Smith Leon MD Dx: PE (pulmonary 12/30/2016 Inpatient - Adult LauraSandie angel thromboembolism) MD Mohit (Primary Dx) 12/27/2016 Telephone [facility] Mike, Chief Comp: Renae Murray RN Appointment Request 12/09/2016 Hospital Encounter Hematology [...] Vital Sign Reading Time Taken Blood Pressure 122/75 12/30/2016 9:49 AM CDT Pulse 73 12/30/2016 9:49 AM CDT Temperature 36.8 C (98.2 F) 12/30/2016 8:05 AM CDT Respiratory Rate 16 12/30/2016 8:05 AM CDT Height 1.727 m (5' 8") 12/28/2016 7:55 PM CDT Weight 120.4 kg (265 lb 6.9 oz) 12/28/2016 7:55 PM CDT Body Mass Index 40.37 12/28/2016 7:55 PM CDT Oxygen Saturation 95% 12/30/2016 8:05 AM CDT Plan of Care Date Type Specialty Providers Description 01/07/2017 Appointment Heart and Vascular Gayatri Leon MD Subj: Upcoming Appt [address] [place] [address] [phone] (Fax) 01/15/2017 Appointment Radiology Subj: Appointment Scheduled 01/15/2017 Appointment Med Hematology and Alvin Chilel MD Subj: Appointment Oncology [address] [place] [address] [phone] (Fax) 01/27/2017 Appointment Urology Grady Riggs, Subj: Appointment Rescheduled [address] [place] [address] [phone] (Fax) Health Maintenance Due Date Last Done Comments HCV Screening 1950 Hepatitis B Vaccine (1 of 3 - Primary 1950 Series) Tdap Vaccine 1961 Lipid Disorder Screening 1968 Td Vaccine 1968 Colonoscopy 09/05/2000 Prostate Cancer Screening 2000 Zoster Vaccine 2010 Pneumococcal Vaccine (1 of 2 - PCV13) 2015 Influenza Vaccine: Seasonal (Season Ended) 2017 06/20/2014, 06/08/2012 Results from Last 3 Months BLOOD GLUCOSE, BEDSIDE (12/30/2016 8:22 AM)Only the most recent of7 resultswithin the time period is included. Component Value Range Glucose, Accu-Chek 113(H) 65-99 mg/dL Specimen Blood, capillary CBC (COMPLETE BLOOD COUNT) (12/30/2016 6:17 AM)Only the most recent of2 resultswithin the time period is included. Component Value Range WBC Count 2.3(L) 3.7-10.5 K/MM3 RBC Count 2.90(L) 4.50-6.20 M/MM3 Hemoglobin 9.1(L) 13.2-17.7 g/dL Hematocrit 27(L) 40-52 % MCV (Mean Corpuscular Volume) 92 82-99 FL MCH (Mean Corpuscular Hemoglobin) 31 25-35 PG MCHC (Mean Corpuscular Hemoglobin Concentration) 34 32-36 % Platelet Count 91(L) 150-400 K/MM3 MPV (Mean Platelet Volume) 11.4 9.4-12.3 FL RBC Dist Width-STD 59.1(H) 35.1-43.9 FL RBC Distrib Width 18.8(H) 9.0-14.5 % Nucleated RBC 1 /100 WBC Specimen Whole Blood CREATININE (12/30/2016 6:17 AM) Component Value Range Creatinine 1.3(H)Comment: 0.6-1.2 mg/dL Creatinine switched to enzymatic method on 01/15/2011.GFR equation switched to IDMS-traceable MDRD equation on 01/15/2011. Calculated GFR values are not valid in clinical settings where serum creatinine is changing. Calculated GFR 55(L) >60 mL/min/1.73 m2 Specimen Blood DIFFERENTIAL (12/29/2016 5:21 PM)Only the most recent of2 resultswithin the time period is included. Component Value Range % Neutrophils-Auto Diff 54.3 % Neutrophils-Auto Diff 1330(L) 1632-5166 /MM3 % Lymphocytes-Auto Diff 24.1 % Lymphocytes-Auto Diff 590(L) 875-3300 /MM3 % Monocytes-Auto Diff 18.0 % Monocytes-Auto Diff 440 130-860 /MM3 % Eosinophils-Auto Diff 2.0 % Eosinophils-Auto Diff 50 40-390 /MM3 % Basophils 0.4 % Basophils-Auto Diff 10 10-136 /MM3 % Immature Granulocytes-Auto Diff 1.2 % Immature Granulocytes-Auto Diff 30 /MM3 Specimen Whole Blood CBC (COMPLETE BLOOD COUNT) (12/29/2016 5:21 PM)Only the most recent of2 resultswithin the time period is included. Component Value Range WBC Count 2.5(L) 3.7-10.5 K/MM3 RBC Count 2.85(L) 4.50-6.20 M/MM3 Hemoglobin 9.1(L) 13.2-17.7 g/dL Hematocrit 26(L) 40-52 % MCV (Mean Corpuscular Volume) 92 82-99 FL MCH (Mean Corpuscular Hemoglobin) 32 25-35 PG MCHC (Mean Corpuscular Hemoglobin Concentration) 35 32-36 % Platelet Count 78(L) 150-400 K/MM3 MPV (Mean Platelet Volume) 12.1 9.4-12.3 FL RBC Dist Width-STD 56.9(H) 35.1-43.9 FL RBC Distrib Width 18.4(H) 9.0-14.5 % Nucleated RBC 2 /100 WBC Specimen Whole Blood CBC WITH DIFFERENTIAL (12/29/2016 5:21 PM)Only the most recent of2 resultswithin the time period is included. Specimen Whole Blood Narrative The following orders were created for panel order CBC WITH DIFFERENTIAL. Procedure Abnormality Status --------- ------ CBC (COMPLETE BLOOD COUNT)[[id number]] AbnormalFinal result DIFFERENTIAL[[id number]] AbnormalFinal result Please view results for these tests on the individual orders. EXTERNAL CT-STORE& INTERPRET (12/29/2016 7:11 AM) Impressions Impression: 1. Large bilateral pulmonary embolic burden with occlusive to near occlusive thrombi involving both the left upper and lower lobes with near occlusive thrombi in the right lower lobe. 2. There is straightening of the cardiac intraventricular septum, suggestive of right ventricular strain and dysfunction. 3. Benign-appearing right adrenal mass is stable. Narrative Outside film interpretation requested. Patient name: Rajesh Hurst. Exam was performed at 14:58 hours on 12/28/2016 at [facility]. 448 images are provided and interpreted on the in-house PACS. Procedure: CT exam of the with intravenous IV contrast. Technique: Exam is performed with intravenous contrast and consists of multiple 2 mm contiguous axial sections reprocessed in the soft tissue and lung algorithms. Clinical Indication:Chest pain, shortness of breath, pulmonary embolus. Comparison: Chest CT dated 08/12/2016 Findings: Supraclavicular, axillary, mediastinal, hilar: multiple benign-appearing calcified and noncalcified mediastinal lymph nodes are stable. On images reconstructed in the cardiac horizontal long axis and short axis, there is straightening of the intraventricular septum. Cardiovascular: Occlusive segmental emboli are present to the right upper lobe and lingula with near occlusive to the left lower lobe. Lesser segmental and subsegmental pulmonary emboli are present medially in the right lower lobe. Abdomen: Mixed fatty and soft tissue mass in the right adrenal gland is stable. Lungs, airways, pleura: Unremarkable. Chest wall, musculoskeletal: Unremarkable. Lines and tubes: None. Procedure Note Eulalio, Incoming Imaging Results - FriDec 31, 2016 9:31 AM CDT Outside film interpretation requested. Patient name: Rajesh Hurst. Exam was performed at 14:58 hours on 12/28/2016 at [facility]. 448 images are provided and interpreted on the in-house PACS. Procedure: CT exam of the with intravenous IV contrast. Technique: Exam is performed with intravenous contrast and consists of multiple 2 mm contiguous axial sections reprocessed in the soft tissue and lung algorithms. Clinical Indication: Chest pain, shortness of breath, pulmonary embolus. Comparison: Chest CT dated 08/12/2016 Findings: Supraclavicular, axillary, mediastinal, hilar: multiple benign-appearing calcified and noncalcified mediastinal lymph nodes are stable. On images reconstructed in the cardiac horizontal long axis and short axis, there is straightening of the intraventricular septum. Cardiovascular: Occlusive segmental emboli are present to the right upper lobe and lingula with near occlusive to the left lower lobe. Lesser segmental and subsegmental pulmonary emboli are present medially in the right lower lobe. Abdomen: Mixed fatty and soft tissue mass in the right adrenal gland is stable. Lungs, airways, pleura: Unremarkable. Chest wall, musculoskeletal: Unremarkable. Lines and tubes: None. IMPRESSION Impression: 1. Large bilateral pulmonary embolic burden with occlusive to near occlusive thrombi involving both the left upper and lower lobes with near occlusive thrombi in the right lower lobe. 2. There is straightening of the cardiac intraventricular septum, suggestive of right ventricular strain and dysfunction. 3. Benign-appearing right adrenal mass is stable. PTT (PARTIAL THROMBOPLASTIN TIME) (12/29/2016 6:41 AM)Only the most recent of3 resultswithin the time period is included. Component Value Range PTT 38(H) 22-31 secs Specimen Blood PLATELET COUNT (12/29/2016 12:03 AM) Component Value Range Platelet Count 60(L) 150-400 K/MM3 Specimen Whole Blood LACTIC ACID, WHOLE BLOOD ([facility]) (12/29/2016 12:03 AM)Only the most recent of2 resultswithin the time period is included. Component Value Range Lactic Acid, Whole Blood 2.6(H)Comment: 0.5-2.0 mEq/L Glycolate, the principle toxic metabolite of ethylene glycol, can cause artifactual elevation of measured lactate. Specimen Whole Blood ECG - EKG 12 LEAD (12/28/2016 6:04 PM) Component Value Range ECG SEVERITY - ABNORMAL ECG - VENT. RATE 63 bpm RR 952 ms P-R INTERVAL 180 ms QRSD INTERVAL 98 ms QT INTERVAL 420 ms QTC INTERVAL 430 ms P AXIS -7 degrees QRS AXIS -57 degrees T WAVE AXIS 36 degrees REPORT SINUS RHYTHM [Remains] LAD, CONSIDER LAFB OR INFERIOR INFARCT [Remains] BORDERLINE R WAVE PROGRESSION, ANTERIOR LEADS [Remains] SIGNIFICANT ECG CONTOUR CHANGES [Now Absent] FIRST DEGREE AV BLOCK Interpreting Physician: Zuhair Marin MD BLOOD CELL MORPHOLOGY (12/28/2016 5:58 PM) Component Value Range Polychromasia 2+ Tear Drop 2+ Specimen Whole Blood VENOUS BLOOD GAS ([facility]ARE [facility]) (12/28/2016 5:58 PM) Component Value Range pH, Venous 7.44(H) 7.33-7.43 pCO2, Venous 40 37-50 torr pO2, Venous 82(H) 37-47 torr Base Excess, Venous 3(H) -2-2 mEq/L Bicarbonate, Venous 27(H) 22-26 mEq/L Total CO2, Venous 28 24-32 mEq/L Temperature, Venous 37.0 Degrees C Specimen Whole Blood NT-PROBNP (12/28/2016 5:58 PM) Component Value Range NT-ProBNP 684(H)Comment: 0-229 pg/mL Reference ranges in adults reflect 95th percentiles for NT-pro-BNP levels in patients without congestive heart failure (CHF). Pediatric reference ranges for patients 18 years and younger are from Micaela et al. Pediatr Cardiol 30:3-8, 2008. Age Reference Range (pg/mL) Pediatric (boys and girls): 0-30 days:263 - 6500 1 month-11 months: 37 - 1000 12 months-35 months: 39 -675 3 years to 6 years:23 -327 7 years to 14 years: 10 -242 15 years to 18 years: 6 -207 Adult Males: 19-44 years: 0 -93 45-54 years: 0 - 138 55-64 years: 0 - 177 65-74 years: 0 - 229 75 years or older: 0 - 852 Adult Females: 19-44 years: 0 - 178 45-54 years: 0 - 192 55-64 years: 0 - 226 65-74 years: 0 - 353 75 years or older: 0 - 624 For adult chronic CHF patients according to [employer] (NYHA) Functional Class for NT-proBNP levels in pg/mL: [id number] Mean percentile percentile Class I: [id number] Class II:[id number] Class III: [id number] Class IV:[id number] Among patients with dyspnea, NT-proBNP is highly sensitive for the detection of acute CHF. In addition, a NT-proBNP < 300 pg/mL effectively rules out acute CHF, with 99% negative predictive value. Elevations in NT-proBNP levels may be observed in states other than left ventricular congestive failure including: acute coronary syndromes, right heart strain/failure (including pulmonary embolism an d cor pulmonale), critical illness, and renal failure. Falsely low NT-proBNP in CHF patients may be observed in increased body mass index. Specimen Blood TROPONIN T (12/28/2016 5:58 PM) Component Value Range Troponin-T <0.03 <=0.10 ng/mL Specimen Blood LIVER PANEL (12/28/2016 5:58 PM) Component Value Range Bilirubin Total 0.5 <=1.2 mg/dL AST 26Comment: 0-40 U/L Adult reference ranges updated on 08/03/13 at 830am ALT 28Comment: 0-41 U/L The upper limit of normal [...] if applicable, data from other diagnostic tests. ALP 79 40-129 U/L GGT 66(H) 8-61 U/L Albumin 3.7 3.4-4.8 g/dL Total Protein 6.2 6.0-8.0 g/dL Specimen Blood PT/INR (PROTHROMBIN TIME/INR) VENOUS (12/28/2016 5:58 PM) Component Value Range PT (Prothrombin Time) 12 9-12 secs INR 1.1 <4.0 Specimen Blood BASIC METABOLIC PANEL W/ CALCIUM (CHEM 8) (12/28/2016 5:58 PM) Component Value Range Sodium 140 135-145 mEq/L Potassium 3.5 3.5-5.0 mEq/L Chloride 100 95-107 mEq/L CO2 25 22-29 mEq/L BUN 19 10-20 mg/dL Creatinine 1.4(H)Comment: 0.6-1.2 mg/dL Creatinine switched to enzymatic method on 01/15/2011.GFR equation switched to IDMS-traceable MDRD equation on 01/15/2011. Calculated GFR values are not valid in clinical settings where serum creatinine is changing. Glucose 90Comment: 65-99 mg/dL The Expert Committee on the Diagnosis and Classification of Diabetes has defined impaired fasting glucose as greater than or equal to 100 mg/dL but less than 126 mg/dL.(Diabetes Care 28 (Suppl 1)S41,2005) Calcium 9.5 8.5-10.5 mg/dL Anion Gap 15 mEq/L Calculated GFR 51(L) >60 mL/min/1.73 m2 Specimen Blood
[2017-01-02 13:12] LABS: Hematocrit 33.1 % (42.0-52.0); Mean Cell Volume 94.3 fl (78-100); Mean Corpuscular Hemoglobin 31.3 pg (27-31); Mean Corpuscular Hgb Conc 33.2 g/dl (32-36); Mean Platelet Volume 9.9 fl (6.0-9.5); Platelet Count 169 K/mm3 (150-450); Red Blood Count 3.51 M/mm3 (4.7-6.0); Red Cell Distribution Width 19.2 % (11.5-14.0)
[2017-01-02] MEDS ORDERED: ONDANSETRON HCL/PF 2 MG/ML VIAL ONE (13:20)
[2017-01-02 13:22] LABS: Total Cells Counted 100
[2017-01-02 13:25] LABS: INR 1.15 INR (0.90-1.10)
[2017-01-02 13:38] LABS: Albumin * 3.2 gm/dl (3.4-5.0); Anion Gap 16.1 mmol/L (6.8-13.8); BUN/Creatinine Ratio 8.3 (9.0-21.6); Bilirubin, Total 0.6 mg/dL (0.0-1.1); Ca. Corrected For Albumin 9.5 mg/dL (8.4-10.2); Calcium * 9.2 mg/dL (7.9-10.9); Carbon Dioxide 24.6 mmol/L (24-32.6); Potassium 3.7 mmol/L (3.4-4.6); Total Protein 6.2 gm/dL (6.2-8.2)
[2017-01-02] MEDS ORDERED: DILTIAZEM HCL 5 MG/ML VIAL IV ONE (13:38)
[2017-01-02 13:39] LABS: Troponin I 0.035 ng/ml (0.00-0.10)
[2017-01-02 13:43] LABS: Atypical (Reactive) Lymph 13 % (0-2); Basophil 1 % (0-1); Eosinophil 1 % (0-3); Lymphocyte 15 % (20-51); Monocyte 4 % (0-9); Neutrophil 66 % (42-75); Neutrophil # 0.7 K/mm3 (1.3-6.0)
[2017-01-02 13:44] LABS: Macrocytosis 2+; Polychromasia 2+
[2017-01-02 13:45] LABS: Absolute Neutrophil Count 0.8 /mm3 (0.0-28.0); Platelet Estimate Normal (NORMAL)
[2017-01-02 13:46] LABS: Neutrophil % 79.2 % (42-75.0)
[2017-01-02] MEDS ORDERED: CEFEPIME HCL 1 GM in DEXTROSE 5 % IN WATER 100 ML IV ONE ×2 (13:49)
[2017-01-02] MEDS ORDERED: NORMAL SALINE IV SCH (14:00)
[2017-01-02 14:16] LABS: Urine Bilirubin Negative (NEGATIVE); Urine Ketone Negative (NEGATIVE); Urine Nitrite Negative (NEGATIVE); Urine Protein 15 mg/dL (NEGATIVE); Urine Urobilinogen Normal (NORMAL); Urine pH 5.5 pH (5.0-7.0)
[2017-01-02 14:25] LABS: Urine Appearance Slightly Cloudy; Urine Bacteria None Seen; Urine Blood 10 /ul (NEGATIVE); Urine Color Yellow; Urine RBC TRACE /hpf (0-5); Urine WBC TRACE /hpf (0-5)
--- NOTE | 2017-01-02 14:43 | ERNOTE ---
Dyspnea - Date Date of Service: 01/02/17 - General Presenting Symptoms: other - vomiting/diarrhea Time Seen by Provider: 01/02/17 12:46 Source: patient, family Exam Limitations: no limitations - Immun/Allergies/Home Medications Immunizations: IMMUNIZATION HX Immunizations Up to Date Yes History of Influenza Vaccine Yes Hx Pneumococcal Vaccination Yes Allergies/Adverse Reactions: Allergies Sulfa (Sulfonamide Antibiotics) [Sulfa(Sulfonamide Antibiotics)] Adverse Reaction (Unknown, Verified 01/02/17 13:01) Home Medications: HOME MEDICATIONS Metoprolol Succinate 100 mg PO DAILY 08/12/12 [Last Taken 10/11/14] Finasteride [Proscar] 5 mg PO HS 10/11/14 [Last Taken 10/10/14] Spironolactone [Aldactone] 25 mg PO DAILY 10/11/14 [Last Taken 10/11/14] amLODIPine BESYLATE [Norvasc] 10 mg PO DAILY 10/11/14 [Last Taken 10/11/14] Acetaminophen [Tylenol] 650 mg PO QID PRN #1 tablet 10/12/14 [Last Taken Unknown ] Glimepiride [Amaryl] 2 mg PO DAILY 11/10/16 [Last Taken Unknown] Enoxaparin Sodium [Lovenox] 120 mg SQ BID 01/02/17 [Last Taken Unknown] - History of Present Illness Narrative: Patient presents to the ED for fever, vomiting and diarrhea. He was discharged over the weekend from [facility] for acute bilater PEs. He had chemo 2 weeks ago for his known malignancy. Today he had fever 102.3 at home. This was associated with 8 episodes of vomiting and watery diarrhea. No blood in stool or vomit. No acute abdominal pain. He felt slightly more SOB but no acute CP. Nothing seems to make this better or worse. Has not seen anyone else for this. Severity: moderate Initiating event: Reports: unknown Frequency of episodes: Reports: no prior episodes Modifying Factors - (Improves): Reports: nothing Modifying Factors (Worsens): Reports: nothing Associated Symptoms-Dyspnea: Reports: fever/chills, lightheadedness. Denies: chest pain/discomfort, weakness Prior Treatment: Reports: recently seen, treated by physician Review of Systems - Review of Systems Constitutional: Present: fever Respiratory: Present: shortness of breath Cardiology: Present: See HPI Gastrointestinal/Abdominal: Present: See HPI All Other Systems: All systems neg except as marked - Patient's Past Medical History Patient History - Medical: Diabetes Type 2, Other Patient History - Cardiac/Respiratory: Hypertension Patient History - Cancer: Bladder Patient History - Surgical Procedures: Cancer Surgery, Other Patient History - Other: None - Family History Father Family History - Medical: Diabetes Type 2 Family History - Cardiac/Respiratory: CHF - Social History Living Situations: home Abuse History: No History of abuse Psych History: No pertinent hx Does anyone smoke in the home?: No Smoking Status: Never smoker Alcohol Use: none Drug Use: none - Immunizations Immunizations Up to Date: Yes Hx Pneumococcal Vaccination: Yes History of Influenza Vaccine: Yes Physical Exam - Physical Exam General Appearance: Present: alert, no apparent distress, other - chronically ill appearing Eye Exam: Normal inspection: bilateral, PERRL: bilateral Ears, Nose, Throat: Present: dry mucous membranes Neck: Present: normal inspection Respiratory: Present: no accessory muscle use, lungs clear Cardiovascular/Chest: Present: tachycardia Gastrointestinal/Abdominal: Present: normal bowel sounds, soft. Absent: tenderness Back Exam: Absent: CVA tenderness (R), CVA tenderness (L) Extremity Exam: Present: other - no deformity Neurological Exam: Present: alert, other - no acute unilateral focal motor or sensory deficits. Skin Exam: Absent: skin rash ED Progress - Results and Orders Patient's Lab Results:: I have reviewed the patient's lab results. - Vital Signs Patient's Vital Signs:: I have reviewed the patient's vital signs. Vital Signs: Vital Signs 01/02/17 01/02/17 01/02/17 12:47 13:08 13:44 Temperature 37.2 C 37.7 C H 37.7 C H Pulse Rate 124 H 130 H 114 H Respiratory 18 19 14 Rate Blood Pressure 138/89 132/88 116/83 O2 Sat by Pulse 94 95 96 Oximetry 01/02/17 14:23 Temperature 37.0 C Pulse Rate 111 H Respiratory 15 Rate Blood Pressure 123/84 O2 Sat by Pulse 98 Oximetry - EKG EKG read: Interp. by me EKG Comments: Atrial fib rate 129. Non-specific ST/T wave changes. No STEMI. - X-Ray X-Ray #1 X-Ray: chest Interpretation: Interp. by me X-ray Comments: I also reviewed official radiology report. - Progress/Reassessment Chief Complaint: Dyspnea Progress:: Improved Progress Note-Subjective: 01/02/17 14:41 Patient given sepsis protocol bolus. IV Abx given. HR improved with IV fluids. D/W Dr Arias who requests transfer to [facility]. D/W [facility] to arrange transfer. Discussed with patient and family. Departure Clinical Impression: Sepsis, Fever, Vomiting and diarrhea, Rapid atrial fibrillation - Departure Disposition: [facility] Condition: Fair Referrals: Abhishek Arias MD [Primary Care Provider] -
[2017-01-02 15:55] VITALS: BP 159/105
== END 2017-01-02 16:10 | disposition short-term general hospital (02) ==
LOC: ER 12:40
DX: A41.9 Sepsis, unspecified organism (principal); R50.9 Fever, unspecified; R11.10 Vomiting, unspecified; R19.7 Diarrhea, unspecified; I48.91 Unspecified atrial fibrillation; Z85.51 Personal history of malignant neoplasm of bladder; I10 Essential (primary) hypertension; E11.9 Type 2 diabetes mellitus without complications

== ENCOUNTER 2017-04-18 10:34 | Emergency (ER) | payer BC ==
[2017-04-18] MEDS ORDERED: ONDANSETRON HCL/PF 2 MG/ML VIAL IV ONE (11:28)
[2017-04-18] MEDS ORDERED: NORMAL SALINE 1,000 ML IV ONE ×2 (11:29→12:57)
--- OUTSIDE RECORDS SUMMARY | 2017-04-18 11:33 | XMS REPORT | Clinical Summary ---
:1950 Author Organization [facility] [place] [address] Care Team Providers Name Role Phone Unavailable Primary Care Provider Unavailable Source Comments This disclosure is being made pursuant to the Rewind Me program and maynot contain all information available regarding this patient.[facility] Allergies Not on File Current Medications Be aware that medications may not be up to date as of this document. Alwaysverify current medications with the patient. Not on file Active Problems Not on file Social History Tobacco Use Types Packs/Day Years Used Date Never Assessed Sex Assigned at Date Recorded Not on file Last Filed Vital Signs Not on file Plan of Treatment Health Maintenance Due Date Last Done Comments Tetanus/Pertussis (1 - Tdap) 1969 Colonoscopy 2000 Well Adult Visit 2000 Zoster Vaccine 60+ 2010 Pneumococcal Low/Medium Risk 65+ (1 of 2 - PCV13) 2015 INFLUENZA IMMUNIZATION (#1) 2017 Results Not on filefrom Last 3 Months
[2017-04-18] MEDS ORDERED: ONDANSETRON HCL/PF 2 MG/ML VIAL ONE (12:05)
[2017-04-18 12:06] LABS: Hematocrit 41.8 % (42.0-52.0); Hemoglobin 14.4 gm/dL (13.5-18.0); Mean Cell Volume 89.3 fl (78-100); Mean Corpuscular Hemoglobin 30.8 pg (27-31); Mean Corpuscular Hgb Conc 34.4 g/dl (32-36); Mean Platelet Volume 10.6 fl (6.0-9.5); Neutrophil # 6.2 K/mm3 (1.3-6.0); Neutrophil % 78.1 % (42-75.0); Platelet Count 189 K/mm3 (150-450); Red Blood Count 4.68 M/mm3 (4.7-6.0); Red Cell Distribution Width 13.2 % (11.5-14.0)
[2017-04-18 12:22] LABS: Albumin * 2.8 gm/dl (3.4-5.0); Anion Gap 13.8 mmol/L (6.8-13.8); BUN/Creatinine Ratio 16.9 (9.0-21.6); Bilirubin, Total 0.6 mg/dL (0.0-1.1); Calcium * 9.4 mg/dL (7.9-10.9); Potassium 4.8 mmol/L (3.4-4.6); Total Protein 6.2 gm/dL (6.2-8.2)
[2017-04-18 12:57] LABS: Urine Appearance Clear; Urine Bacteria None Seen; Urine Bilirubin Negative (NEGATIVE); Urine Blood Negative /ul (NEGATIVE); Urine Color Yellow; Urine Ketone Negative (NEGATIVE); Urine Nitrite Negative (NEGATIVE); Urine Protein Negative (NEGATIVE); Urine RBC None Seen /hpf (0-5); Urine Urobilinogen Normal (NORMAL); Urine WBC None Seen /hpf (0-5)
--- NOTE | 2017-04-18 13:59 | ERNOTE ---
Medical Problem HPI - Narrative Date of Service: 04/18/17 - General Chief Complaint: Nausea/Vomiting Time Seen by Provider: 04/18/17 11:20 Source: patient Exam Limitations: no limitations - Immun/Allergies/Home Medications Immunizations: IMMUNIZATION HX Immunizations Up to Date Yes History of Influenza Vaccine Yes Hx Pneumococcal Vaccination Yes Allergies/Adverse Reactions: Allergies Sulfa (Sulfonamide Antibiotics) [Sulfa(Sulfonamide Antibiotics)] Adverse Reaction (Unknown, Verified 04/18/17 11:08) Home Medications: HOME MEDICATIONS Metoprolol Succinate 100 mg PO DAILY 08/12/12 [Last Taken 10/11/14] Finasteride [Proscar] 5 mg PO HS 10/11/14 [Last Taken 10/10/14] Spironolactone [Aldactone] 25 mg PO DAILY 10/11/14 [Last Taken 10/11/14] amLODIPine BESYLATE [Norvasc] 10 mg PO DAILY 10/11/14 [Last Taken 10/11/14] Acetaminophen [Tylenol] 650 mg PO QID PRN #1 tablet 10/12/14 [Last Taken Unknown ] Glimepiride [Amaryl] 2 mg PO DAILY 11/10/16 [Last Taken Unknown] Doxycycline Hyclate [Morgidox] 100 mg PO BID #20 capsule 04/18/17 [Last Taken Unknown] Eliquis 04/18/17 [Last Taken Unknown] Ondansetron [Zofran Odt] 8 mg PO Q8H PRN #30 tab 04/18/17 [Last Taken Unknown] Zofran 04/18/17 [Last Taken Unknown] - History of Present History Narrative: onset of nausea and vomiting this am also has been coughing ,known hx of blsdder ca with mets Timing: constant Modifying Factors - (Improves): Present: other - nothig Modifying Factors - (Worsens): Present: eating Review of Systems - Review of Systems Constitutional: Present: recent illness, fever, weakness, fatigue, malaise EYE: Present: no symptoms reported ENT: Present: no symptoms reported Respiratory: Present: cough, orthopnea Cardiology: Present: no symptoms reported Gastrointestinal/Abdominal: Present: no symptoms reported Genitourinary: Present: frequency Musculoskeletal: Present: no symptoms reported Skin: Present: no symptoms reported Neurological: Present: no symptoms reported Endocrine: Present: no symptoms reported Hematologic/Lymphatic: Present: no symptoms reported Psych: Present: no symptoms reported All Other Systems: All systems neg except as marked - Patient's Past Medical History Patient History - Medical: Diabetes Type 2, Other - bladder ca with mets Patient History - Cardiac/Respiratory: No pertinent hx, Cardiomyopathy, Hypertension Patient History - Cancer: Bladder Patient History - Surgical Procedures: Cancer Surgery, Other Patient History - Other: None - Family History Mother Family History - Medical: Diabetes Type 1 Family History - Cardiac/Respiratory: No pertinent hx Father Family History - Medical: Diabetes Type 2 Family History - Cardiac/Respiratory: CHF - Social History Living Situations: home Abuse History: No History of abuse Psych History: No pertinent hx Does anyone smoke in the home?: No Smoking Status: Never smoker Have you smoked in the past 12 months: No Do you dip or chew tobacco: No Patient requests Smoking Cessation Consult: No Alcohol Use: none Drug Use: none - Immunizations Immunizations Up to Date: Yes Hx Pneumococcal Vaccination: Yes History of Influenza Vaccine: Yes Physical Exam - Physical Exam General Appearance: Present: alert, mild distress, anxious Head Exam: Present: normal inspection, no evidence of injury Eye Exam: Normal inspection: bilateral, PERRL: bilateral, EOMI: bilateral Ears, Nose, Throat: Present: normal ENT inspection Neck: Present: normal inspection, nontender Respiratory: Present: decreased breath sounds, crackles Cardiovascular/Chest: Present: regular rate, rhythm, no murmur, normal peripheral pulses Peripheral Pulses: N=norm/S=strong/W=weak/B=bound/A=absent: Carotid (R): Normal , Carotid (L): Normal, Radial (R): Normal, Radial (L): Normal, Femoral (R): Normal, Femoral (L): Normal, Dorsalis-pedis (R): Normal, Dorsalis-pedis (L): Normal Gastrointestinal/Abdominal: Present: normal bowel sounds, tenderness Back Exam: Present: normal inspection, normal range of motion, no CVA tenderness , no vertebral tenderness Extremity Exam: Present: normal inspection, non-tender, normal range of motion, no edema Neurological Exam: Present: alert, oriented, normal mood/affect, no motor/ sensory deficits DTR: N=norm/NB=norm/brisk/A=abs/DD=dull/dimin/HC=hyperactive: Bicep (R): Normal , Bicep (L): Normal, Tricep (R): Normal, Tricep (L): Normal, Knee (R): Normal, Knee (L): Normal Skin Exam: Present: normal color, warm/dry Lymphatic Exam: Present: no adenopathy ED Progress - Results and Orders Patient's Lab Results:: I have reviewed the patient's lab results. - Vital Signs Patient's Vital Signs:: I have reviewed the patient's vital signs. Vital Signs: Vital Signs 04/18/17 11:05 Temperature 36.1 C L Pulse Rate 80 Respiratory 18 Rate Blood Pressure 198/112 O2 Sat by Pulse 94 Oximetry - Progress/Reassessment Chief Complaint: Nausea/Vomiting Progress:: Improved - Transfer of Care Expected Disposition: Discharge Departure - Departure Clinical Impression: Nausea & vomiting, Pneumonia Disposition: Home self-care Condition: Good Instructions: Nausea, Adult, Community-Acquired Pneumonia, Adult, [id number] Referrals: Sarkis Smith MBBS [Primary Care Provider] - Prescriptions: Doxycycline Hyclate [Morgidox] 100 mg PO BID #20 capsule Ondansetron [Zofran Odt] 8 mg PO Q8H PRN #30 tab PRN Reason: Nausea
[2017-04-18 16:37] VITALS: BP 176/103
== END 2017-04-18 15:05 | disposition home or self-care (01) ==
LOC: ER 10:34
DX: J18.9 Pneumonia, unspecified organism (principal); R11.2 Nausea with vomiting, unspecified; Z85.51 Personal history of malignant neoplasm of bladder; E11.9 Type 2 diabetes mellitus without complications
CPT/HCPCS: 36415; 71020; 74020; 80053; 81001; 82150; 83690; 85025; 96365; 96375; 99284; J2405

== ENCOUNTER 2017-05-26 10:02 | Emergency (ER) | payer BC ==
[2017-05-26] MEDS ORDERED: HYDROcodone/ACETAMINOPHEN 1 EACH TABLET PO ONE (10:28)
[2017-05-26] MEDS ORDERED: ACETAMINOPHEN 325 MG TABLET PO ONE (10:28)
[2017-05-26] MEDS ORDERED: HYDROcodone/ACETAMINOPHEN 1 EACH TABLET ONE (10:31)
[2017-05-26] MEDS ORDERED: ACETAMINOPHEN 325 MG TABLET ONE (10:31)
--- NOTE | 2017-05-26 10:34 | ERNOTE ---
Medical Problem HPI - Narrative Date of Service: 05/26/17 - General Chief Complaint: General Assessment Time Seen by Provider: 05/26/17 10:23 Source: patient, family, RN notes reviewed Exam Limitations: no limitations - Immun/Allergies/Home Medications Immunizations: IMMUNIZATION HX Immunizations Up to Date Yes History of Influenza Vaccine Yes Hx Pneumococcal Vaccination Yes Allergies/Adverse Reactions: Allergies Sulfa (Sulfonamide Antibiotics) [Sulfa(Sulfonamide Antibiotics)] Adverse Reaction (Unknown, Verified 05/26/17 10:14) Home Medications: HOME MEDICATIONS Metoprolol Succinate 100 mg PO DAILY 08/12/12 [Last Taken 10/11/14] Finasteride [Proscar] 5 mg PO HS 10/11/14 [Last Taken 10/10/14] Spironolactone [Aldactone] 25 mg PO DAILY 10/11/14 [Last Taken 10/11/14] amLODIPine BESYLATE [Norvasc] 10 mg PO DAILY 10/11/14 [Last Taken 10/11/14] Acetaminophen [Tylenol] 650 mg PO QID PRN #1 tablet 10/12/14 [Last Taken Unknown ] Glimepiride [Amaryl] 2 mg PO DAILY 11/10/16 [Last Taken Unknown] Eliquis 10 mg PO BID 04/18/17 [Last Taken Unknown] Ondansetron [Zofran Odt] 8 mg PO Q8H PRN #30 tab 04/18/17 [Last Taken Unknown] HYDROcodone/ACETAMINOPHEN [[place] 5-325] 1 tab PO Q6H PRN #20 tab 05/26/17 [Last Taken Unknown] - History of Present History Narrative: 66 y/o male brought to the ED by his for left rib pain. He fell in the driveway at home on the evening of 05/23. He fell forward, landing on concrete. His hand was against his chest when he fell. He began having pain in that area the next day. He took 1 Vicodin for pain last night but has not taken anything today. His reports that he has been somewhat weak and generally unsteady due to his multiple medical problems recently. Date (Duration): 05/23/17 Modifying Factors - (Improves): Present: medication, rest Modifying Factors - (Worsens): Present: movement Review of Systems - Review of Systems Constitutional: Present: recent illness. Absent: fever EYE: Present: no symptoms reported ENT: Present: no symptoms reported Respiratory: Absent: shortness of breath, cough Cardiology: Absent: chest pain, palpitations Gastrointestinal/Abdominal: Absent: nausea, vomiting Genitourinary: Present: no symptoms reported Musculoskeletal: Present: muscle pain. Absent: neck pain Skin: Absent: lesions, lumps Neurological: Absent: headache, dizziness/light-headedness Endocrine: Present: no symptoms reported Hematologic/Lymphatic: Present: easy bruising, easy bleeding Psych: Present: no symptoms reported - Patient's Past Medical History Patient History - Medical: Diabetes Type 2, Other Patient History - Cardiac/Respiratory: Atrial Fibrillation, Cardiomyopathy, CHF , Hypertension, Pulmonary Embolism Patient History - Cancer: Bladder Patient History - Surgical Procedures: Cancer Surgery, Other Patient History - Other: None - Family History Mother Family History - Medical: Diabetes Type 1 Family History - Cardiac/Respiratory: No pertinent hx Father Family History - Medical: Diabetes Type 2 Family History - Cardiac/Respiratory: CHF - Social History Living Situations: spouse Abuse History: No History of abuse Psych History: No pertinent hx Does anyone smoke in the home?: No Alcohol Use: none Drug Use: none - Immunizations Immunizations Up to Date: Yes Hx Pneumococcal Vaccination: Yes History of Influenza Vaccine: Yes Physical Exam - Physical Exam General Appearance: Present: wd/wn, alert, no apparent distress, obese, other - noted to be uncomfortable with movement Head Exam: Present: normal inspection, no evidence of injury Neck: Present: normal inspection, nontender, supple Respiratory: Present: no respiratory distress, normal breath sounds, no accessory muscle use, lungs clear, chest tenderness - Left upper lateral ribs Cardiovascular/Chest: Present: regular rate, rhythm, no murmur Extremity Exam: Present: normal inspection, normal range of motion, no edema Neurological Exam: Present: alert, oriented, normal mood/affect, no motor/ sensory deficits Skin Exam: Present: normal color, warm/dry ED Progress - Vital Signs Patient's Vital Signs:: I have reviewed the patient's vital signs. Vital Signs: Vital Signs 05/26/17 10:07 Temperature 36.6 C Pulse Rate 59 L Respiratory 12 Rate Blood Pressure 160/93 O2 Sat by Pulse 97 Oximetry - X-Ray X-Ray #1 X-Ray: ribs Interpretation: Reviewed by me X-ray Comments: IMPRESSION: 1. Equivocal finding of the anterior left sixth rib. Correlate clinically. 2. 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 3. Trace left-sided pleural fluid. Consider hemothorax. 4. Additional comments are as above. Electronically signed by Yenny Freeman M.D.. X-Ray #2 X-Ray: chest Interpretation: Reviewed by me X-ray Comments: IMPRESSION: 1. No new focal acute cardiopulmonary finding. 2. Left lower lobe retrocardiac opacity suggestive of either pneumonia versus compressive atelectasis, radiographically stable since 04/18/2017. 3. Mild left-sided pleural effusion, also stable since 04/18/2017. 4. Recommend radiographic follow-up to document resolution. Electronically signed by Yenny Freeman M.D.. - Progress/Reassessment Chief Complaint: General Assessment Progress:: Improved Progress Note-Subjective: 05/26/17 11:23 Verbalizes improvement in pain after Henderson and Tylenol. Discussed rib xray findings with Dr. Freeman, he recommends CXR for further eval of hemothorax. Departure - Departure Clinical Impression: Rib fracture Qualifiers: Encounter type: initial encounter Rib fracture type: single rib Fracture type: closed Laterality: left Qualified Code(s): S22.32XA - Fracture of one rib, left side, initial encounter for closed fracture Disposition: Home Follow Up Needed Condition: Stable Instructions: Rib Fracture Referrals: Abhishek Arias MD [Primary Care Provider] - Prescriptions: HYDROcodone/ACETAMINOPHEN [Henderson 5-325] 1 tab PO Q6H PRN #20 tab PRN Reason: Pain
[2017-05-26 11:46] LABS: Hematocrit 48.1 % (42.0-52.0); Hemoglobin 16.4 gm/dL (13.5-18.0); Mean Cell Volume 87.8 fl (78-100); Mean Corpuscular Hemoglobin 29.9 pg (27-31); Mean Corpuscular Hgb Conc 34.1 g/dl (32-36); Mean Platelet Volume 9.9 fl (6.0-9.5); Platelet Count 275 K/mm3 (150-450); Red Blood Count 5.48 M/mm3 (4.7-6.0); Red Cell Distribution Width 14.1 % (11.5-14.0)
[2017-05-26 11:51] LABS: Total Cells Counted 100
[2017-05-26 12:03] VITALS: BP 158/88
[2017-05-26 12:07] LABS: Atypical (Reactive) Lymph 1 % (0-2); Band 2 % (0-2.0); Eosinophil 1 % (0-3); Immature Granulocyte 2 (0-1); Lymphocyte 5 % (20-51); Monocyte 4 % (0-9); Neutrophil 85 % (42-75); Neutrophil # 13.6 K/mm3 (1.3-6.0); Platelet Estimate Normal (NORMAL); RBC Morphology Normal (NORMAL)
== END 2017-05-26 12:00 | disposition home or self-care (01) ==
LOC: ER 10:02
DX: S22.32XA Fracture of one rib, left side, initial encounter for closed fracture (principal); E11.9 Type 2 diabetes mellitus without complications; Z86.711 Personal history of pulmonary embolism; Z85.51 Personal history of malignant neoplasm of bladder; I48.91 Unspecified atrial fibrillation; I50.9 Heart failure, unspecified; W01.0XXA Fall on same level from slipping, tripping and stumbling without subsequent striking against object, initial encounter; Y92.008 Other place in unspecified non-institutional (private) residence as the place of occurrence of the external cause

== ENCOUNTER 2017-06-09 12:08 | Emergency (ER) | payer MEDICARE, OTHER ==
--- NOTE | 2017-06-09 12:56 | ERNOTE ---
Medical Problem HPI - General Chief Complaint: General Assessment Time Seen by Provider: 06/09/17 12:46 Source: patient Exam Limitations: no limitations - Immun/Allergies/Home Medications Immunizations: IMMUNIZATION HX Immunizations Up to Date Yes History of Influenza Vaccine Yes Hx Pneumococcal Vaccination Yes Allergies/Adverse Reactions: Allergies Sulfa (Sulfonamide Antibiotics) [Sulfa(Sulfonamide Antibiotics)] Adverse Reaction (Unknown, Verified 06/09/17 12:19) Home Medications: HOME MEDICATIONS Metoprolol Succinate 100 mg PO DAILY 08/12/12 [Last Taken 10/11/14] Finasteride [Proscar] 5 mg PO HS 10/11/14 [Last Taken 10/10/14] Spironolactone [Aldactone] 25 mg PO DAILY 10/11/14 [Last Taken 10/11/14] amLODIPine BESYLATE [Norvasc] 10 mg PO DAILY 10/11/14 [Last Taken 10/11/14] Acetaminophen [Tylenol] 650 mg PO QID PRN #1 tablet 10/12/14 [Last Taken Unknown ] Glimepiride [Amaryl] 2 mg PO DAILY 11/10/16 [Last Taken Unknown] Eliquis 10 mg PO BID 04/18/17 [Last Taken Unknown] Ondansetron [Zofran Odt] 8 mg PO Q8H PRN #30 tab 04/18/17 [Last Taken Unknown] HYDROcodone/ACETAMINOPHEN [[place] 5-325] 1 tab PO Q6H PRN #20 tab 05/26/17 [Last Taken Unknown] Prochlorperazine Maleate [Compazine] 10 mg PO Q6H PRN #30 tablet 06/09/17 [Last Taken Unknown] - History of Present History Narrative: Patient has a history of bladder cancer, failed chemo therapy and was tried on immunotherapy. He had a bad reaction to that with prolonged vomiting and diarrhea. Immunotherapy was stopped in April and the diarrhea and vomiting has been controlled with compazine,immodium and probiotics. He stopped his probiotics four days ago and the diarrhea has increased again (once today). He just feels generally weak, has no appetite, gags at times with food but has been able to drink, no vomiting. Review of Systems - Review of Systems Constitutional: Present: recent illness, weakness, malaise EYE: Absent: double vision ENT: Absent: nose congestion, sore throat Respiratory: Present: shortness of breath - chronic since diagnosis of PE in the spring. Absent: cough Cardiology: Absent: chest pain Gastrointestinal/Abdominal: Present: See HPI, nausea, diarrhea. Absent: vomiting, abdominal pain Genitourinary: Absent: frequency, dysuria Musculoskeletal: Absent: back pain Skin: Absent: rash Neurological: Present: weakness - not focal. Absent: headache - Patient's Past Medical History Patient History - Medical: Diabetes Type 2, Other Patient History - Cardiac/Respiratory: Atrial Fibrillation, Cardiomyopathy, Hypertension, Pulmonary Embolism Patient History - Cancer: Bladder Patient History - Surgical Procedures: Back Surgery, Cancer Surgery, Urology Patient History - Other: None - Family History Mother Family History - Medical: Diabetes Type 1 Family History - Cardiac/Respiratory: No pertinent hx Father Family History - Medical: Diabetes Type 2 Family History - Cardiac/Respiratory: CHF - Social History Living Situations: home Abuse History: No History of abuse Psych History: No pertinent hx Does anyone smoke in the home?: No Smoking Status: Never smoker Alcohol Use: none Drug Use: none - Immunizations Immunizations Up to Date: Yes Hx Pneumococcal Vaccination: Yes History of Influenza Vaccine: Yes Physical Exam - Physical Exam General Appearance: Present: wd/wn, alert, no apparent distress Eye Exam: Normal inspection: bilateral, PERRL: bilateral Ears, Nose, Throat: Present: normal pharynx Neck: Present: normal inspection Respiratory: Present: no respiratory distress, normal breath sounds, no accessory muscle use, chest nontender, lungs clear Cardiovascular/Chest: Present: regular rate, rhythm, no murmur Gastrointestinal/Abdominal: Present: normal bowel sounds, nontender, nondistended, soft Extremity Exam: Present: normal inspection, no edema Neurological Exam: Present: alert, oriented, normal mood/affect, no motor/ sensory deficits Skin Exam: Present: normal color, warm/dry ED Progress - Results and Orders Patient's Lab Results:: I have reviewed the patient's lab results. - Vital Signs Patient's Vital Signs:: I have reviewed the patient's vital signs. Vital Signs: Vital Signs 06/09/17 06/09/17 12:12 12:49 Temperature 36.3 C L Pulse Rate 84 76 Respiratory 16 15 Rate Blood Pressure 107/67 114/76 O2 Sat by Pulse 96 94 Oximetry - Progress/Reassessment Chief Complaint: General Assessment Progress Note-Subjective: 06/09/17 13:26 drank about half a bottle of water 06/09/17 13:50 discussed test results with patient and , talked about oral hydration vs assessing his port, discuss with his oncologist options for increasing his appetite Departure Clinical Impression: Generalized muscle weakness Fatigue Qualifiers: Fatigue type: due to neoplasm Qualified Code(s): R53.0 - Neoplastic (malignant ) related fatigue - Departure Disposition: Home self-care Condition: Stable Instructions: Fatigue Additional Instructions: try to make yourself drink fluids especially water follow up with your cancer doctor next week as scheduled, consider calling your doctor to discuss medications to help you with your appetite and fatigue Referrals: Abhishek Arias MD [Primary Care Provider] - Prescriptions: Prochlorperazine Maleate [Compazine] 10 mg PO Q6H PRN #30 tablet PRN Reason: Nausea And Vomiting
[2017-06-09 13:12] LABS: Hematocrit 46.3 % (42.0-52.0); Hemoglobin 15.8 gm/dL (13.5-18.0); Mean Cell Volume 88.2 fl (78-100); Mean Corpuscular Hemoglobin 30.1 pg (27-31); Mean Corpuscular Hgb Conc 34.1 g/dl (32-36); Mean Platelet Volume 9.7 fl (6.0-9.5); Neutrophil # 9.7 K/mm3 (1.3-6.0); Neutrophil % 86.3 % (42-75.0); Platelet Count 255 K/mm3 (150-450); Red Blood Count 5.25 M/mm3 (4.7-6.0); White Blood Count 11.3 K/mm3 (4.0-10.5)
[2017-06-09 13:23] LABS: Albumin * 2.3 gm/dl (3.4-5.0); Anion Gap 13.1 mmol/L (6.8-13.8); BUN/Creatinine Ratio 22.5 (9.0-21.6); Bilirubin, Total 0.5 mg/dL (0.0-1.1); Ca. Corrected For Albumin 9.2 mg/dL (8.4-10.2); Calcium * 8.2 mg/dL (7.9-10.9); Carbon Dioxide 23.8 mmol/L (24-32.6); Potassium 3.9 mmol/L (3.4-4.6); Total Protein 5.2 gm/dL (6.2-8.2)
[2017-06-09 14:33] VITALS: BP 133/85
== END 2017-06-09 13:51 | disposition home or self-care (01) ==
LOC: ER 12:08
DX: M62.81 Muscle weakness (generalized) (principal); R53.0 Neoplastic (malignant) related fatigue; C67.9 Malignant neoplasm of bladder, unspecified

== ENCOUNTER 2017-06-24 08:37 | Inpatient (IN) | payer MEDICARE, OTHER ==
[2017-06-24] MEDS ORDERED: NORMAL SALINE 1,000 ML IV PRN ×3 (10:50→18:48)
--- NOTE | 2017-06-24 11:21 | HP ---
Chief Complaint - Chief Complaint Date of Service: 06/24/17 Time of Service: 11:07 Chief Complaint: MELENDEZ History of Present Illness: 66 yo WM with PMH: renal cancer, DM2, previous Pe/DVT, HTN, Hyperlipidemia and Paroxysmal Afib, had developed a left pleural effusion which was drained (1 liter) about a week ago, but has had worsening MELENDEZ over the last couple days so was instructed to f/u with me. He was seen in the clinic with his initial HR being in the 190's, but refusing to go to ER. He states he feels weak and tired and MELENDEZ, but denies CP, LE edema or claudications, N/V, diarrhea, but mouth does feel dry and he doesn't hydrate well (he has needed IVF in the past and had similar sx to current at that time). While in clinic he had labs drawn (WBC 23k with a left shift but only 2 bands), CMP showed Cr 1.9, otherwise no overall concerns. CXR showed increased left pleural effusion, ? pneumonia could not be excluded. EKG showed changes from previous one including ? infarcts and 1st degree AV block, with first Trop I being 0.018. His mouth was very dry and he looked weak and ill, though not septic. Due to his multiple health issues, his abnormal labs, I felt it best to treat him for a possible pneumonia (WBC 23K and left pleural effusion and MELENDEZ) and a 1gm IM injection of rocephin was given in clinic. Will continue rocephin q24hrs and add zithromax. Due to him looking dry - dehydrated, will give a fluid bolus and then run fluids x 1 liter. Will limit this some due to concerns for accumulation possibility on left. Due to abnormal EKG changes and trop I of 0.018, will repeat Trop I in a few hours. Anticipate patient being discharged home in the am unless changes in his overall status or labs change. - Patient's Past Medical History Patient History - Medical: Diabetes Type 2, Renal Failure, Other Patient History - Cardiac/Respiratory: Atrial Fibrillation, Cardiomyopathy, Hypertension, Pulmonary Embolism Patient History - Cancer: Bladder Patient History - Surgical Procedures: Back Surgery, Cancer Surgery, Urology Patient History - Other: None - Family History Mother Family History - Medical: Diabetes Type 1 Family History - Cardiac/Respiratory: No pertinent hx Father Family History - Medical: Diabetes Type 2 Family History - Cardiac/Respiratory: CHF - Social History Abuse History: No History of abuse Psych History: No pertinent hx Does anyone smoke in the home?: No Smoking Status: Never smoker Have you smoked in the past 12 months: No Do you dip or chew tobacco: No Alcohol Use: rarely - Immunizations Immunizations Up to Date: Yes Hx Pneumococcal Vaccination: Yes History of Influenza Vaccine: Yes Review Of Systems (GEN) - Review of Systems Generalized/Overall Review: Present: Weakness, Fatigue. Absent: Chills, Fever EENTM: Present: No Symptoms Reported Respiratory: Present: Shortness of Breath. Absent: Cough, Wheezing Cardiac: Present: Palpitations. Absent: Chest Pain, Edema Abdominal: Present: No Symptoms Reported Genitourinary: Present: No Symptoms Reported Musculoskeletal: Present: No Symptoms Reported Neurological: Present: No Symptoms Reported Skin: Present: No Symptoms Reported Endocrine: Present: No Symptoms Reported Immunizations: IMMUNIZATION HX Immunizations Up to Date Yes History of Influenza Vaccine Yes Hx Pneumococcal Vaccination Yes Allergies/Adverse Reactions: Allergies Allergy/AdvReac Type Severity Reaction Status Date / Time Sulfa (Sulfonamide AdvReac Unknown Verified 06/24/17 11:33 Antibiotics) [Sulfa(Sulfonamide Antibiotics)] Home Medications: HOME MEDICATIONS Metoprolol Succinate 100 mg PO DAILY 08/12/12 [Last Taken 06/23/17] Finasteride [Proscar] 5 mg PO HS 10/11/14 [Last Taken 06/23/17] Spironolactone [Aldactone] 25 mg PO DAILY 10/11/14 [Last Taken 06/23/17] amLODIPine BESYLATE [Norvasc] 10 mg PO DAILY 10/11/14 [Last Taken 06/23/17] Glimepiride [Amaryl] 2 mg PO DAILY 11/10/16 [Last Taken 06/23/17] Prochlorperazine Maleate [Compazine] 10 mg PO Q6H PRN #30 tablet 06/09/17 [Last Taken 06/23/17] Budesonide [Entocort EC] 3 cap PO DAILY 06/24/17 [Last Taken 06/23/17] Nystatin [Mycostatin 100 Mu/Ml Suspension] 5 ml PO Q4H PRN 06/24/17 [Last Taken 06/23/17] Tamsulosin HCl 0.4 mg PO DAILY 06/24/17 [Last Taken 06/23/17] predniSONE [Prednisone] 10 mg PO DAILY 06/24/17 [Last Taken 06/23/17] Exam - Exam Constitutional: Present: Alert, Oriented x3, Cooperative, Mild distress, Other - looks ill but not septic., Looks Older than stated age ENT Exam: Present: hearing grossly normal Eye Exam: bilateral eye: normal inspection, PERRL, EOMI Neck: Present: supple Respiratory: Present: lungs clear - except decreased BS and dullness to percussion in left base 1/2 way up, normal breath sounds, no accessory muscle use, respiratory distress Cardiovascular/Chest: Present: tachycardia, systolic murmur Abdomen: Present: Normal bowel sounds, soft, nontender, no rebound tenderness, no hepatospenomegaly, no masses, distended /Rectal: Present: Exam deferred Extremity: Present: no calf tenderness, lower extremity edema Skin Exam: Present: pallor Neurologic: Present: normal mood/affect, oriented x 3 Appearance: Present: appropriate appearance, appropriate insight, neat Eye contact: Present: cooperative, good eye contact, normal speech Thoughts: Present: normal thought pattern, no apparent hallucination Assessment/Plan - Assessment/Plan (1) Leukocytosis Assessment: concern for developing pneumonia given the MELENDEZ, malaise, effusion on left side that cant rule out pneumonia and leukocytosis of 23K with left shift of 94%, 2 Bands. Will treat with rocephin and zithromax. Problem: Acute (2) Abnormal EKG Assessment: due to MELENDEZ will recheck trop I to be sure not a developing AMI/ACS. No interventions at this time. Problem: Acute (3) Dehydration Assessment: Mouth is dry and Cr is 1.9. will give fluid bolus NS x 1 L then run NS at 125ml /hr x 1 L. monitor for the need to stop fluids early vs. repeat bolus vs. make fluids continuous until discharge. Problem: Acute (4) Pneumonia Assessment: zithromax and rocephin due to renal failure - Cr 1.9. Problem: Acute Qualifiers: Pneumonia type: due to unspecified organism Laterality: left Lung location: lower lobe of lung Qualified Code(s): J18.1 - Lobar pneumonia, unspecified organism (5) Hyperlipidemia Problem: Chronic (6) Hypertension Problem: Chronic (7) Elevated TSH Assessment: Could be new onset hypothyroidism, (which could also explain fatigue and MELENDEZ) consider starting levothyroxine if fluids dont correct fatigue/MELENDEZ. Would start at 50mcg and recheck TSH 5 wks. Problem: Acute (8) Discharge planning issues Assessment: anticipate discharge in the am if he shows improvement in sx overall. There is a chance that his MELENDEZ could be due to the reaccumulation of his left pleural effusion requiring possible thoracentesis - therapeutic tap. Problem: Acute
[2017-06-24] MEDS ORDERED: AZITHROMYCIN 250 MG TABLET PO ONE (12:00)
[2017-06-24] MEDS ORDERED: predniSONE 20 MG TABLET PO SCH (15:45)
[2017-06-24] MEDS ORDERED: ENOXAPARIN SODIUM 40 MG/0.4 ML SYRG SC SCH (18:30)
[2017-06-24] MEDS ORDERED: predniSONE 20 MG TABLET PO ONE (19:00)
[2017-06-24] MEDS ORDERED: ALBUTEROL SULFATE 2.5 MG/0.5 ML VIAL.NEB IH PRN (19:22)
[2017-06-24] MEDS: FINASTERIDE 5 MG TABLET PO SCH (20:00)
[2017-06-24] MEDS ORDERED: ACETAMINOPHEN 325 MG TABLET PO PRN (21:46)
[2017-06-24] MEDS ORDERED: PROCHLORPERAZINE MALEATE 10 MG TABLET PO PRN (22:51)
[2017-06-25] MEDS: METOPROLOL SUCCINATE 100 MG TABLET.SA PO SCH (08:34)
[2017-06-25] MEDS: GLIMEPIRIDE 2 MG TABLET PO SCH (08:35)
[2017-06-25] MEDS: SPIRONOLACTONE 25 MG TABLET PO SCH (08:35)
[2017-06-25] MEDS: TAMSULOSIN HCL 0.4 MG CAP.SR.24H PO SCH (08:35)
[2017-06-25] MEDS: predniSONE 20 MG TABLET PO SCH (08:37)
[2017-06-25] MEDS: amLODIPine BESYLATE 10 MG TABLET PO SCH (08:38)
[2017-06-25] MEDS ORDERED: predniSONE 10 MG TABLET PO SCH (09:00)
[2017-06-25 09:58] LABS: Hematocrit 42.3 % (42.0-52.0); Hemoglobin 14.4 gm/dL (13.5-18.0); Mean Cell Volume 89.2 fl (78-100); Mean Corpuscular Hemoglobin 30.4 pg (27-31); Mean Platelet Volume 10.2 fl (6.0-9.5); Neutrophil # 15.8 K/mm3 (1.3-6.0); Neutrophil % 93.4 % (42-75.0); Platelet Count 204 K/mm3 (150-450); Red Blood Count 4.74 M/mm3 (4.7-6.0); Red Cell Distribution Width 15.9 % (11.5-14.0); White Blood Count 16.9 K/mm3 (4.0-10.5)
[2017-06-25 10:07] LABS: Prothrombin Time (Patient) 11.7 Seconds (9.0-11.0)
[2017-06-25 10:11] LABS: INR 1.17 INR (0.90-1.10)
[2017-06-25 10:18] LABS: Anion Gap 14.8 mmol/L (6.8-13.8); BUN/Creatinine Ratio 19.5 (9.0-21.6); Bilirubin, Total 0.3 mg/dL (0.0-1.1); Calcium * 8.7 mg/dL (7.9-10.9); Carbon Dioxide 21.8 mmol/L (24-32.6); Potassium 4.6 mmol/L (3.4-4.6); Total Protein 5.3 gm/dL (6.2-8.2)
--- NOTE | 2017-06-25 16:32 | PN ---
Subjective - Date and Time Seen Date: 06/25/17 Time: 16:32 Objective - Vitals Vitals: Last Vital Signs Temp 36.6 C 06/25/17 15:03 Pulse 66 06/25/17 15:03 Resp 20 06/25/17 15:03 BP 116/78 06/25/17 15:03 Pulse Ox 95 06/25/17 15:03 - Abnormal Lab Findings Abnormal Lab Findings: Abnormal Lab Results 06/25/17 06/25/17 06/25/17 Range/Units 09:56 09:56 09:56 WBC 16.9 H D (4.0-10.5) K/mm3 RDW 15.9 H (11.5-14.0) % MPV 10.2 H (6.0-9.5) fl Immature Gran % (Auto) 0.80 H (0.001-0.429) % Immature Gran # (Auto) 0.13 H (0.000-0.0310) K/mm3 Neutrophils % 93.4 H (42-75.0) % Lymphocytes % 1.6 L (20-51) % Neutrophils # 15.8 H (1.3-6.0) K/mm3 Lymphocytes # 0.3 L (1.5-3.5) k/mm3 PT 11.7 H (9.0-11.0) Seconds INR (Anticoag Therapy) 1.17 H (0.90-1.10) INR Carbon Dioxide 21.8 L (24-32.6) mmol/L Anion Gap 14.8 H (6.8-13.8) mmol/L BUN 36 H (6-23) mg/dL Creatinine 1.85 H (0.4-1.4) mg/dL Est GFR (Non-Af Amer) 39 L (60-130) mL/min Random Glucose 166 H D (70-110) mg/dL Total Protein 5.3 L (6.2-8.2) gm/dL Albumin 2.0 L (3.4-5.0) gm/dl
[2017-06-25] MEDS ORDERED: AZITHROMYCIN 250 MG TABLET PO SCH (18:27)
[2017-06-25] MEDS: FINASTERIDE 5 MG TABLET PO SCH (21:21)
[2017-06-26 07:54] VITALS: BP 146/76
--- NOTE | 2017-06-26 08:39 | DS ---
(1) Pneumonia Problem: Acute Qualifiers: Pneumonia type: due to unspecified organism Laterality: left Lung location: lower lobe of lung Qualified Code(s): J18.1 - Lobar pneumonia, unspecified organism (2) Pleural effusion Problem: Acute Procedures Performed: see notes below List Procedures: 06/25/17 - US guided Thoracentesis Discharge Disposition: Home self care Disposition: Home self-care Condition: Good Discharge Activity: Activity as tolerated Discharge Diet: Consistent carbs Referrals: Abhishek Arias MD [Primary Care Provider] - One Week Problem Oriented Discharge Instructions to Patient/Family: Pleural Effusion, Community-Acquired Pneumonia, Adult, [id number] Additional Patient Instructions (free text): Please make TCM appointment at discharge, if applicable. Thank you! Shahida @ [phone]. Continue prednisone taper as before. Prescriptions (Any new or edited meds): Azithromycin 250 mg PO DAILY #4 tablet Cefdinir 300 mg PO BID #20 capsule Complete Home Medications List: Complete Home Medication List: Metoprolol Succinate 100 mg PO DAILY 08/12/12 Finasteride [Proscar] 5 mg PO HS 10/11/14 Spironolactone [Aldactone] 25 mg PO DAILY 10/11/14 amLODIPine BESYLATE [Norvasc] 10 mg PO DAILY 10/11/14 Glimepiride [Amaryl] 2 mg PO DAILY 11/10/16 Prochlorperazine Maleate [Compazine] 10 mg PO Q6H PRN #30 tablet 06/09/17 Budesonide [Entocort EC] 3 cap PO DAILY 06/24/17 Nystatin [Mycostatin 100 Mu/Ml Suspension] 5 ml PO Q4H PRN 06/24/17 Tamsulosin HCl 0.4 mg PO DAILY 06/24/17 predniSONE [Prednisone] 10 mg PO DAILY 06/24/17 Azithromycin 250 mg PO DAILY #4 tablet 06/26/17 Cefdinir 300 mg PO BID #20 capsule 06/26/17
[2017-06-26] MEDS: predniSONE 20 MG TABLET PO SCH (09:18)
[2017-06-26] MEDS: SPIRONOLACTONE 25 MG TABLET PO SCH (09:19)
[2017-06-26] MEDS: amLODIPine BESYLATE 10 MG TABLET PO SCH (09:19)
[2017-06-26] MEDS: METOPROLOL SUCCINATE 100 MG TABLET.SA PO SCH (09:19)
[2017-06-26] MEDS: GLIMEPIRIDE 2 MG TABLET PO SCH (09:20)
[2017-06-26] MEDS: TAMSULOSIN HCL 0.4 MG CAP.SR.24H PO SCH (09:21)
[2017-06-26] MEDS ORDERED: HEPARIN SOD.,PORCINE 100 UNITS/ML IV ONE (10:20)
== END 2017-06-26 11:30 | disposition home or self-care (01) | DRG 167 ==
LOC: RT 08:37 → MS 09:19 → OBSVTOIN 06-25 09:19
PROVIDERS: ADMIT Family Medicine; ATTEND Family Medicine
PROC: 0W9B4ZZ Drainage of Left Pleural Cavity, Percutaneous Endoscopic Approach (ICD-10-PCS; principal; 2017-06-25)
DX: J18.1 Lobar pneumonia, unspecified organism (principal); J90 Pleural effusion, not elsewhere classified; E86.0 Dehydration; R94.31 Abnormal electrocardiogram [ECG] [EKG]; D72.829 Elevated white blood cell count, unspecified; I48.0 Paroxysmal atrial fibrillation; I10 Essential (primary) hypertension; E78.5 Hyperlipidemia, unspecified; E11.9 Type 2 diabetes mellitus without complications
CPT/HCPCS: 32555; 36415; 71020; 80053; 84484; 85025; 85610; 93005; 94660; G0378